=== PATIENT | female | born 1990 | race African-American/Black ===

== ENCOUNTER 2020-02-29 04:03 | Inpatient (IN) | payer MEDICAID ==
[~2020-02-29] VITALS: Ht 162.6 cm; Wt 109.4 kg
[~2020-02-29 04:03] MED LIST: ADV250 IH; ALBU8HFA4 IH; DIVA-80 PO; HALOD100I IM; OLAN10TA6 PO; ZIPR20CA2 PO
[2020-02-29 10:00] VITALS: BP 127/81
[2020-02-29 10:35] VITALS: BP 148/101
[2020-02-29 11:03] VITALS: BP 157/107
[2020-02-29] MEDS: AmLODIPine BESYLATE 5 MG TABLET PO SCH (12:14)
[2020-02-29] MEDS ORDERED: HALOPERIDOL LACTATE 5 MG/ML VIAL ONE (14:58)
[2020-02-29] MEDS ORDERED: LORazepam 2 MG/ML VIAL ONE (14:58)
[2020-02-29] MEDS ORDERED: DiphenhydrAMINE HCL 50 MG/ML VIAL ONE (14:59)
[2020-02-29] MEDS ORDERED: HALOPERIDOL LACTATE 5 MG/ML VIAL IM ONE (15:15)
[2020-02-29] MEDS ORDERED: LORazepam 2 MG/ML VIAL IM ONE (15:15)
[2020-02-29] MEDS ORDERED: DiphenhydrAMINE HCL 50 MG/ML VIAL IM ONE (15:15)
[2020-02-29] MEDS: NICOTINE POLACRILEX 2 MG LOZENGE PO PRN (15:55)
[2020-02-29 16:05] VITALS: BP 140/90
[2020-02-29 16:10] VITALS: BP 140/90
[2020-02-29] MEDS: DIVALPROEX SODIUM 500 MG ER TABLET PO SCH (20:24)
[2020-02-29] MEDS: OLANZapine 10 MG RAPDIS TABLET PO SCH (20:24)
[2020-03-01] MEDS: NICOTINE POLACRILEX 2 MG LOZENGE PO PRN ×3 (02:49→20:11)
[2020-03-01 04:06] VITALS: BP 121/80
[2020-03-01] MEDS: ACETAMINOPHEN 325 MG TABLET PO PRN ×2 (05:47→20:05)
[2020-03-01] MEDS: AmLODIPine BESYLATE 5 MG TABLET PO SCH (08:08)
[2020-03-01] MEDS: OLANZapine 10 MG RAPDIS TABLET PO SCH ×2 (08:08→20:02)
[2020-03-01 08:20] VITALS: BP 142/93
[2020-03-01 08:25] VITALS: BP 142/93
[2020-03-01 08:25] LABS: BASOPHILS % (AUTO) 0.4 % (0.0-2.0); EOSINOPHILS % (AUTO) 2.5 % (1.0-6.0); HEMATOCRIT 33.4 % (36-46); HEMOGLOBIN 11.8 g/dL (12.0-16.0); LYMPHOCYTES # (AUTO) 4.3 K/uL (1.0-4.8); LYMPHOCYTES % (AUTO) 56.1 % (22.0-44.0); MEAN CORPUSCULAR HEMOGLOBIN 29.1 pg (26.0-34.0); MEAN CORPUSCULAR HGB CONC 35.3 G/dL (31.0-37.0); MEAN CORPUSCULAR VOLUME 82 fL (80-100); MONOCYTES # (AUTO) 0.9 K/uL (0.1-1.0); MONOCYTES % (AUTO) 11.5 % (2.0-9.0); NEUTROPHILS # (AUTO) 2.3 K/uL (1.8-7.7); NEUTROPHILS % (AUTO) 29.5 % (40.0-70.0); PLATELET COUNT (AUTO) 428 K/uL (150-450); RED BLOOD CELL COUNT(AUTO) 4.05 MIL/uL (4.00-5.20); RED CELL DISTRIBUTION WIDTH 15.6 % (11.5-14.5)
[2020-03-01 08:48] LABS: ALANINE AMINOTRANSFERASE 30 U/L (12-78); ALBUMIN 3.5 g/dL (3.4-5.0); ALKALINE PHOSPHATASE 86 U/L (46-116); ANION GAP 11 mmol/L (8-16); ASPARTATE AMINOTRANSFERASE 23 U/L (15-37); BILIRUBIN,TOTAL 0.1 mg/dL (0.1-1.0); CALCIUM, TOTAL 9.1 mg/dL (8.8-10.5); CARBON DIOXIDE 31 mmol/L (22-29); CHLORIDE 104 mmol/L (98-107); CHOL/HDL RATIO 4.9 (3.9-5.7); CHOLESTEROL 182 mg/dL (131-200); CREATININE 0.71 mg/dL (0.60-1.30); FREE T4 (FREE THYROXINE) 1.08 ng/dL (0.76-1.46); GLOMERULAR FILTR. RATE CALC > 60 mL/min (>60); GLUCOSE,RANDOM 103 mg/dL (70-110); HCG,QUANTITATIVE < 1 mIU/mL (0-6); HDL CHOLESTEROL 37 mg/dL (40-60); LDL CHOL (CALC.) 87 mg/dL (0-130); POTASSIUM 3.6 mmol/L (3.5-5.1); SODIUM SERUM 146 mmol/L (136-145); TOTAL PROTEIN, SERUM 7.5 g/dL (6.4-8.2); TRIGLYCERIDES 290 mg/dL (15-150); UREA NITROGEN, BLOOD 11 mg/dL (7-18)
[2020-03-01 09:18] LABS: HEMOGLOBIN A1C 5.4 % (3.8-5.6)
[2020-03-01 09:44] LABS: APPEARANCE,URINE CLOUDY (CLEAR); BILIRUBIN,URINE NEGATIVE (NEGATIVE); GLUCOSE, URINE (UA) NEGATIVE (NEGATIVE); KETONES,URINE NEGATIVE (NEGATIVE); LEUKOCYTE ESTERASE ,URINE NEGATIVE (NEGATIVE); NITRATE,URINE NEGATIVE (NEGATIVE); OCCULT BLOOD,URINE NEGATIVE (NEGATIVE); PROTEIN,URINE NEGATIVE (NEGATIVE); UROBILINOGEN,URINE 0.2 mg/dL (<=1.0)
[2020-03-01 09:48] LABS: AMPHET/METH SCREEN,URINE NEGATIVE (NEGATIVE); BARBITURATE SCREEN, URINE NEGATIVE (NEGATIVE); BENZODIAZEPINES SCREEN,URINE NEGATIVE (NEGATIVE); CANNABINOID SCREEN,URINE NEGATIVE (NEGATIVE); COCAINE SCREEN,URINE NEGATIVE (NEGATIVE); METHADONE SCREEN, URINE NEGATIVE (NEGATIVE); OPIATE SCREEN,URINE NEGATIVE (NEGATIVE)
[2020-03-01 09:51] LABS: PHENCYCLIDINE SCREEN,URINE NEGATIVE (NEGATIVE)
[2020-03-01] MEDS: LORazepam 2 MG TABLET PO PRN ×2 (10:24→14:44)
[2020-03-01] MEDS: HALOPERIDOL 5 MG TABLET PO PRN ×2 (10:25→16:09)
[2020-03-01 16:45] VITALS: BP 123/81
[2020-03-01] MEDS: DIVALPROEX SODIUM 500 MG ER TABLET PO SCH (20:02)
[2020-03-01 20:05] VITALS: BP 132/78
[2020-03-01] MEDS: ZOLPIDEM TARTRATE 10 MG TABLET PO PRN (20:12)
[2020-03-02 02:49] VITALS: BP 127/92
[2020-03-02] MEDS: OLANZapine 10 MG RAPDIS TABLET PO SCH ×2 (09:22→20:41)
[2020-03-02] MEDS: AmLODIPine BESYLATE 5 MG TABLET PO SCH (09:22)
[2020-03-02] MEDS: LORazepam 2 MG TABLET PO PRN ×2 (09:26→15:57)
[2020-03-02] MEDS: NICOTINE POLACRILEX 2 MG LOZENGE PO PRN ×2 (10:07→20:55)
[2020-03-02] MEDS: HALOPERIDOL 5 MG TABLET PO PRN ×2 (10:43→15:57)
[2020-03-02 13:14] VITALS: BP 136/101
[2020-03-02] MEDS ORDERED: HALO100V4 IM (13:33)
[2020-03-02] MEDS ORDERED: ALBU8HFA IH (13:33)
[2020-03-02] MEDS: BENZOCAINE/MENTHOL LOZENGE PO PRN ×2 (13:46→20:59)
[2020-03-02 16:20] VITALS: BP 130/90
[2020-03-02] MEDS: DIVALPROEX SODIUM 500 MG ER TABLET PO SCH (20:41)
[2020-03-02] MEDS: ZOLPIDEM TARTRATE 10 MG TABLET PO PRN (20:59)
[2020-03-02 21:19] VITALS: BP 134/86
[2020-03-02] MEDS: ACETAMINOPHEN 325 MG TABLET PO PRN (21:19)
[2020-03-03 03:11] VITALS: BP 114/91
[2020-03-03] MEDS: HALOPERIDOL 5 MG TABLET PO PRN ×3 (03:14→20:15)
[2020-03-03] MEDS: LORazepam 2 MG TABLET PO PRN ×2 (03:14→21:32)
[2020-03-03] MEDS: BENZOCAINE/MENTHOL LOZENGE PO PRN ×3 (03:16→19:14)
[2020-03-03] MEDS: NICOTINE POLACRILEX 2 MG LOZENGE PO PRN ×2 (05:19→17:05)
[2020-03-03] MEDS: OLANZapine 10 MG RAPDIS TABLET PO SCH ×2 (08:37→20:15)
[2020-03-03] MEDS: AmLODIPine BESYLATE 5 MG TABLET PO SCH (08:37)
[2020-03-03 09:35] VITALS: BP 138/95
[2020-03-03] MEDS ORDERED: LORazepam 2 MG/ML VIAL ONE (13:21)
[2020-03-03] MEDS ORDERED: DiphenhydrAMINE HCL 50 MG/ML VIAL ONE (13:22)
[2020-03-03] MEDS ORDERED: ChlorproMAZINE HCL 25 MG/ML 2 ML AMP ONE (13:22)
[2020-03-03] MEDS ORDERED: LORazepam 2 MG/ML VIAL IM ONE (13:30)
[2020-03-03] MEDS ORDERED: ChlorproMAZINE HCL 25 MG/ML 2 ML AMP IM ONE (13:30)
[2020-03-03] MEDS ORDERED: DiphenhydrAMINE HCL 50 MG/ML VIAL IM ONE (13:30)
[2020-03-03 16:02] VITALS: BP 125/98
[2020-03-03] MEDS: DIVALPROEX SODIUM 500 MG ER TABLET PO SCH (20:14)
[2020-03-03] MEDS: ZOLPIDEM TARTRATE 10 MG TABLET PO PRN (22:51)
[2020-03-04 05:09] VITALS: BP 108/74
[2020-03-04] MEDS: BENZOCAINE/MENTHOL LOZENGE PO PRN ×3 (05:40→20:00)
[2020-03-04] MEDS ORDERED: IBUPROFEN 400 MG TABLET PO PRN (07:00)
[2020-03-04] MEDS ORDERED: NICOTINE 14 MG/24 HOUR PATCH TD PRN (07:00)
[2020-03-04] MEDS ORDERED: DOCUSATE SODIUM 100 MG CAPSULE PO PRN (07:00)
[2020-03-04] MEDS ORDERED: LOPERAMIDE HCL 2 MG CAPSULE PO PRN (07:00)
[2020-03-04] MEDS ORDERED: ONDANSETRON HCL 4 MG TABLET PO PRN (07:00)
[2020-03-04] MEDS ORDERED: CloNIDine HCL 0.1 MG TABLET PO PRN (07:00)
[2020-03-04] MEDS ORDERED: MAGNESIUM HYDROXIDE SUSPENSION 30 ML UDCUP PO PRN (07:00)
[2020-03-04] MEDS ORDERED: MAG HYDROX/AL HYDROX/SIMETH ES 30 ML SUSPENSION UDCUP PO PRN (07:00)
[2020-03-04] MEDS: LORazepam 2 MG TABLET PO PRN ×2 (08:03→15:50)
[2020-03-04] MEDS: OLANZapine 10 MG RAPDIS TABLET PO SCH ×2 (08:03→20:43)
[2020-03-04] MEDS: AmLODIPine BESYLATE 5 MG TABLET PO SCH (08:03)
[2020-03-04] MEDS: NICOTINE POLACRILEX 2 MG LOZENGE PO PRN ×2 (08:50→11:09)
[2020-03-04] MEDS: ACETAMINOPHEN 325 MG TABLET PO PRN (09:41)
[2020-03-04 10:23] VITALS: BP 136/89
[2020-03-04] MEDS: HALOPERIDOL 5 MG TABLET PO PRN (15:50)
[2020-03-04] MEDS: GuaiFENesin/D-METHORPHAN [SUGAR-FREE] 200-20MG/10 ML SYRUP UDCUP PO PRN (17:04)
[2020-03-04] MEDS: DIVALPROEX SODIUM 500 MG ER TABLET PO SCH (20:43)
[2020-03-04] MEDS: ZOLPIDEM TARTRATE 10 MG TABLET PO PRN (20:43)
[2020-03-05 04:19] VITALS: BP 127/83
[2020-03-05] MEDS: ACETAMINOPHEN 325 MG TABLET PO PRN ×3 (04:22→20:32)
[2020-03-05] MEDS ORDERED: ChlorproMAZINE HCL 25 MG/ML 2 ML AMP IM ONE (07:00)
[2020-03-05] MEDS ORDERED: LORazepam 2 MG/ML VIAL IM ONE (07:00)
[2020-03-05] MEDS ORDERED: DiphenhydrAMINE HCL 50 MG/ML VIAL IM ONE (07:00)
[2020-03-05] MEDS: NICOTINE POLACRILEX 2 MG LOZENGE PO PRN ×2 (08:33→16:43)
[2020-03-05] MEDS: OLANZapine 10 MG RAPDIS TABLET PO SCH ×2 (08:33→20:32)
[2020-03-05] MEDS: AmLODIPine BESYLATE 5 MG TABLET PO SCH (08:34)
[2020-03-05] MEDS: BENZOCAINE/MENTHOL LOZENGE PO PRN ×2 (09:45→15:53)
[2020-03-05] MEDS: LORazepam 2 MG TABLET PO PRN (16:14)
[2020-03-05] MEDS: HALOPERIDOL 5 MG TABLET PO PRN (16:14)
[2020-03-05 16:37] VITALS: BP 165/100
[2020-03-05] MEDS: ALBUTEROL SULFATE HFA 90 MCG/PUFF 8 GM INHALER IH PRN (17:40)
[2020-03-05] MEDS: DIVALPROEX SODIUM 500 MG ER TABLET PO SCH (20:31)
[2020-03-05] MEDS: ZOLPIDEM TARTRATE 10 MG TABLET PO PRN (20:33)
[2020-03-06 02:00] VITALS: BP 128/86
[2020-03-06] MEDS: BENZOCAINE/MENTHOL LOZENGE PO PRN ×2 (04:21→13:57)
[2020-03-06] MEDS: OLANZapine 10 MG RAPDIS TABLET PO SCH ×2 (08:11→20:21)
[2020-03-06] MEDS: AmLODIPine BESYLATE 5 MG TABLET PO SCH (08:11)
[2020-03-06] MEDS: LORazepam 2 MG TABLET PO PRN (08:19)
[2020-03-06] MEDS: NICOTINE POLACRILEX 2 MG LOZENGE PO PRN ×2 (08:19→16:25)
[2020-03-06] MEDS: ALBUTEROL SULFATE HFA 90 MCG/PUFF 8 GM INHALER IH PRN (16:25)
[2020-03-06] MEDS: HALOPERIDOL 5 MG TABLET PO PRN (18:25)
[2020-03-06] MEDS: ACETAMINOPHEN 325 MG TABLET PO PRN (19:35)
[2020-03-06] MEDS: DIVALPROEX SODIUM 500 MG ER TABLET PO SCH (20:21)
[2020-03-06] MEDS: ZOLPIDEM TARTRATE 10 MG TABLET PO PRN (20:21)
[2020-03-07] MEDS: BENZOCAINE/MENTHOL LOZENGE PO PRN ×3 (02:51→20:36)
[2020-03-07] MEDS: ACETAMINOPHEN 325 MG TABLET PO PRN (04:34)
[2020-03-07] MEDS: NICOTINE POLACRILEX 2 MG LOZENGE PO PRN ×2 (04:37→17:50)
[2020-03-07 06:27] VITALS: BP 132/88
[2020-03-07 08:00] VITALS: BP 118/80
[2020-03-07] MEDS: OLANZapine 10 MG RAPDIS TABLET PO SCH (08:05)
[2020-03-07] MEDS: AmLODIPine BESYLATE 5 MG TABLET PO SCH (08:05)
[2020-03-07] MEDS: LORazepam 2 MG TABLET PO PRN ×2 (08:05→18:11)
[2020-03-07] MEDS: ALBUTEROL SULFATE HFA 90 MCG/PUFF 8 GM INHALER IH PRN ×2 (09:37→17:52)
[2020-03-07] MEDS: HALOPERIDOL 5 MG TABLET PO PRN ×2 (09:37→18:12)
[2020-03-07 19:35] VITALS: BP 138/90
[2020-03-07] MEDS: DIVALPROEX SODIUM 500 MG ER TABLET PO SCH (20:13)
[2020-03-07] MEDS: OLANZapine 7.5 MG TABLET PO SCH (20:13)
[2020-03-08] MEDS: ACETAMINOPHEN 325 MG TABLET PO PRN ×2 (02:45→18:52)
[2020-03-08 04:38] VITALS: BP 122/87
[2020-03-08] MEDS: OMEGA-3/DHA/EPA/FISH OIL 1,000 MG CAPSULE PO SCH (08:21)
[2020-03-08] MEDS: MULTIVITAMINS WITH IRON TABLET PO SCH (08:21)
[2020-03-08] MEDS: LORazepam 2 MG TABLET PO PRN ×2 (08:21→16:53)
[2020-03-08] MEDS: OLANZapine 7.5 MG TABLET PO SCH ×2 (08:21→20:40)
[2020-03-08] MEDS: AmLODIPine BESYLATE 5 MG TABLET PO SCH (08:21)
[2020-03-08 08:22] VITALS: BP 112/69
[2020-03-08] MEDS: NICOTINE POLACRILEX 2 MG LOZENGE PO PRN ×2 (08:57→19:39)
[2020-03-08] MEDS: BENZOCAINE/MENTHOL LOZENGE PO PRN ×2 (12:19→18:31)
[2020-03-08] MEDS: ALBUTEROL SULFATE HFA 90 MCG/PUFF 8 GM INHALER IH PRN (13:36)
[2020-03-08] MEDS: HALOPERIDOL 5 MG TABLET PO PRN (14:08)
[2020-03-08 17:22] VITALS: BP 138/83
[2020-03-08] MEDS: DIVALPROEX SODIUM 500 MG ER TABLET PO SCH (20:40)
[2020-03-08] MEDS: GuaiFENesin/D-METHORPHAN [SUGAR-FREE] 200-20MG/10 ML SYRUP UDCUP PO PRN (20:51)
[2020-03-09 04:13] VITALS: BP 140/75
[2020-03-09] MEDS: ACETAMINOPHEN 325 MG TABLET PO PRN ×2 (04:13→18:08)
[2020-03-09] MEDS: MULTIVITAMINS WITH IRON TABLET PO SCH (08:08)
[2020-03-09] MEDS: OMEGA-3/DHA/EPA/FISH OIL 1,000 MG CAPSULE PO SCH (08:08)
[2020-03-09] MEDS: AmLODIPine BESYLATE 5 MG TABLET PO SCH (08:08)
[2020-03-09] MEDS: OLANZapine 7.5 MG TABLET PO SCH ×2 (08:08→21:00)
[2020-03-09] MEDS: LORazepam 2 MG TABLET PO PRN ×2 (08:08→14:38)
[2020-03-09] MEDS: BENZOCAINE/MENTHOL LOZENGE PO PRN ×2 (08:49→15:54)
[2020-03-09] MEDS: NICOTINE POLACRILEX 2 MG LOZENGE PO PRN (11:02)
[2020-03-09] MEDS: HALOPERIDOL 5 MG TABLET PO PRN (14:38)
[2020-03-09] MEDS: ZOLPIDEM TARTRATE 10 MG TABLET PO PRN (21:00)
[2020-03-09] MEDS: DIVALPROEX SODIUM 500 MG ER TABLET PO SCH (21:00)
[2020-03-10] MEDS: NICOTINE POLACRILEX 2 MG LOZENGE PO PRN ×3 (06:05→17:12)
[2020-03-10] MEDS: BENZOCAINE/MENTHOL LOZENGE PO PRN ×3 (06:09→19:11)
[2020-03-10 06:11] VITALS: BP 130/57
[2020-03-10] MEDS: ACETAMINOPHEN 325 MG TABLET PO PRN (06:18)
[2020-03-10] MEDS: ALBUTEROL SULFATE HFA 90 MCG/PUFF 8 GM INHALER IH PRN ×2 (08:13→17:14)
[2020-03-10 08:15] VITALS: BP 120/72
[2020-03-10] MEDS: LORazepam 2 MG TABLET PO PRN ×3 (08:18→21:33)
[2020-03-10] MEDS: MULTIVITAMINS WITH IRON TABLET PO SCH (08:18)
[2020-03-10] MEDS: OLANZapine 7.5 MG TABLET PO SCH ×2 (08:18→20:39)
[2020-03-10] MEDS: OMEGA-3/DHA/EPA/FISH OIL 1,000 MG CAPSULE PO SCH (08:18)
[2020-03-10] MEDS: AmLODIPine BESYLATE 5 MG TABLET PO SCH (08:18)
[2020-03-10 17:14] VITALS: BP 143/93
[2020-03-10] MEDS: DIVALPROEX SODIUM 500 MG ER TABLET PO SCH (20:39)
[2020-03-10] MEDS: ZOLPIDEM TARTRATE 10 MG TABLET PO PRN (20:39)
[2020-03-10] MEDS: PETROLATUM,WHITE 28 GM JELLY TP PRN (20:41)
[2020-03-10] MEDS: HALOPERIDOL 5 MG TABLET PO PRN (21:39)
[2020-03-11] MEDS: BENZOCAINE/MENTHOL LOZENGE PO PRN ×3 (01:17→16:14)
[2020-03-11 01:18] VITALS: BP 123/91
[2020-03-11] MEDS: NICOTINE POLACRILEX 2 MG LOZENGE PO PRN ×3 (01:40→20:40)
[2020-03-11] MEDS: GuaiFENesin/D-METHORPHAN [SUGAR-FREE] 200-20MG/10 ML SYRUP UDCUP PO PRN ×2 (06:14→16:38)
[2020-03-11] MEDS: OLANZapine 7.5 MG TABLET PO SCH ×2 (08:00→20:40)
[2020-03-11] MEDS: OMEGA-3/DHA/EPA/FISH OIL 1,000 MG CAPSULE PO SCH (08:00)
[2020-03-11] MEDS: MULTIVITAMINS WITH IRON TABLET PO SCH (08:00)
[2020-03-11] MEDS: AmLODIPine BESYLATE 5 MG TABLET PO SCH (08:00)
[2020-03-11] MEDS: LORazepam 2 MG TABLET PO PRN ×2 (08:00→16:37)
[2020-03-11] MEDS: ALBUTEROL SULFATE HFA 90 MCG/PUFF 8 GM INHALER IH PRN ×2 (08:38→18:53)
[2020-03-11] MEDS: HALOPERIDOL 5 MG TABLET PO PRN (09:48)
[2020-03-11 16:15] VITALS: BP 136/89
[2020-03-11] MEDS: ACETAMINOPHEN 325 MG TABLET PO PRN (16:38)
[2020-03-11] MEDS: PETROLATUM,WHITE 28 GM JELLY TP PRN (18:53)
[2020-03-11] MEDS: ZOLPIDEM TARTRATE 10 MG TABLET PO PRN (20:40)
[2020-03-11] MEDS: DIVALPROEX SODIUM 500 MG ER TABLET PO SCH (20:40)
[2020-03-12] MEDS: BENZOCAINE/MENTHOL LOZENGE PO PRN ×2 (01:17→08:10)
[2020-03-12 01:57] VITALS: BP 122/86
[2020-03-12] MEDS: ACETAMINOPHEN 325 MG TABLET PO PRN (02:24)
[2020-03-12] MEDS: NICOTINE POLACRILEX 2 MG LOZENGE PO PRN (07:02)
[2020-03-12 07:54] LABS: ANION GAP 7 mmol/L (8-16); CALCIUM, TOTAL 9.2 mg/dL (8.8-10.5); CARBON DIOXIDE 30 mmol/L (22-29); CHLORIDE 106 mmol/L (98-107); CREATININE 0.63 mg/dL (0.60-1.30); GLOMERULAR FILTR. RATE CALC > 60 mL/min (>60); GLUCOSE,RANDOM 82 mg/dL (70-110); POTASSIUM 4.2 mmol/L (3.5-5.1); SODIUM SERUM 143 mmol/L (136-145); UREA NITROGEN, BLOOD 8 mg/dL (7-18)
[2020-03-12] MEDS: MULTIVITAMINS WITH IRON TABLET PO SCH (08:08)
[2020-03-12] MEDS: OMEGA-3/DHA/EPA/FISH OIL 1,000 MG CAPSULE PO SCH (08:08)
[2020-03-12] MEDS: OLANZapine 7.5 MG TABLET PO SCH (08:09)
[2020-03-12] MEDS: AmLODIPine BESYLATE 5 MG TABLET PO SCH (08:09)
[2020-03-12] MEDS: LORazepam 2 MG TABLET PO PRN (08:35)
[2020-03-12] MEDS ORDERED: OLAN7.5T9 PO (09:31)
[2020-03-12] MEDS ORDERED: DIVA-80 PO (09:31)
[2020-03-12] MEDS ORDERED: MVITFE PO ×2 (11:13→11:14)
[2020-03-12] MEDS ORDERED: AMLO-257 PO (11:13)
[2020-03-12] MEDS ORDERED: OMEG-135 PO (11:13)
== END 2020-03-12 13:25 | disposition home or self-care (01) | DRG 885 ==
LOC: B3A 11:07
DX: F25.0 Schizoaffective disorder, bipolar type (principal); R45.851 Suicidal ideations; E87.0 Hyperosmolality and hypernatremia; Z91.14 Patient's other noncompliance with medication regimen; J44.9 Chronic obstructive pulmonary disease, unspecified; D64.9 Anemia, unspecified; F19.90 Other psychoactive substance use, unspecified, uncomplicated; E78.5 Hyperlipidemia, unspecified; Z59.0 Homelessness; F10.10 Alcohol abuse, uncomplicated; Y90.9 Presence of alcohol in blood, level not specified; F17.200 Nicotine dependence, unspecified, uncomplicated; I95.9 Hypotension, unspecified; Z79.899 Other long term (current) drug therapy
CPT/HCPCS: 80307; 83036; 84439; 84443; 86592; 87081; J1200; J1630; J2060; J3230; J3535

== ENCOUNTER 2020-03-20 07:30 | Inpatient (IN) | payer MEDICAID ==
[~2020-03-20] VITALS: Ht 154.9 cm; Wt 109.3 kg
[~2020-03-20 07:30] MED LIST changes: -ADV250 IH; -ALBU8HFA4 IH; +AMLO-257 PO; -HALOD100I IM; +MVITFE PO; -OLAN10TA6 PO; +OLAN7.5T9 PO; +OMEG-135 PO; -ZIPR20CA2 PO
[2020-03-20 09:28] VITALS: BP 127/90
[2020-03-20] MEDS: LORazepam 2 MG TABLET PO PRN ×2 (10:51→16:56)
[2020-03-20 11:14] VITALS: BP 143/96
[2020-03-20] MEDS ORDERED: ONDANSETRON HCL 4 MG TABLET PO PRN (15:00)
[2020-03-20] MEDS ORDERED: MAG HYDROX/AL HYDROX/SIMETH ES 30 ML SUSPENSION UDCUP PO PRN (15:00)
[2020-03-20] MEDS ORDERED: CloNIDine HCL 0.1 MG TABLET PO PRN (15:00)
[2020-03-20] MEDS ORDERED: MAGNESIUM HYDROXIDE SUSPENSION 30 ML UDCUP PO PRN (15:00)
[2020-03-20] MEDS ORDERED: PETROLATUM,WHITE 28 GM JELLY TP PRN (15:00)
[2020-03-20] MEDS ORDERED: NICOTINE 14 MG/24 HOUR PATCH TD PRN (15:00)
[2020-03-20] MEDS ORDERED: LOPERAMIDE HCL 2 MG CAPSULE PO PRN (15:00)
[2020-03-20] MEDS ORDERED: DOCUSATE SODIUM 100 MG CAPSULE PO PRN (15:00)
[2020-03-20 17:23] VITALS: BP 139/68
[2020-03-20] MEDS: ALBUTEROL SULFATE HFA 90 MCG/PUFF 8 GM INHALER IH PRN (17:56)
[2020-03-20] MEDS: OLANZapine 7.5 MG TABLET PO SCH (20:25)
[2020-03-20] MEDS: DIVALPROEX SODIUM 500 MG DR TABLET PO SCH (20:25)
[2020-03-20] MEDS: ZOLPIDEM TARTRATE 10 MG TABLET PO PRN (20:30)
[2020-03-21 04:11] VITALS: BP 128/74
[2020-03-21] MEDS: LORazepam 2 MG TABLET PO PRN ×2 (06:44→12:02)
[2020-03-21] MEDS: OMEGA-3/DHA/EPA/FISH OIL 1,000 MG CAPSULE PO SCH (08:19)
[2020-03-21] MEDS: MULTIVITAMINS WITH IRON TABLET PO SCH (08:20)
[2020-03-21] MEDS: NICOTINE 7 MG/24 HOUR PATCH TD SCH (08:20)
[2020-03-21] MEDS: OLANZapine 7.5 MG TABLET PO SCH ×2 (08:20→21:03)
[2020-03-21] MEDS: AmLODIPine BESYLATE 5 MG TABLET PO SCH (08:22)
[2020-03-21 08:29] VITALS: BP 112/74
[2020-03-21] MEDS: HALOPERIDOL 5 MG TABLET PO PRN ×2 (10:13→18:53)
[2020-03-21 16:38] VITALS: BP 124/72
[2020-03-21] MEDS: ACETAMINOPHEN 325 MG TABLET PO PRN (18:39)
[2020-03-21] MEDS: ALBUTEROL SULFATE HFA 90 MCG/PUFF 8 GM INHALER IH PRN (18:53)
[2020-03-21] MEDS: ZOLPIDEM TARTRATE 10 MG TABLET PO PRN (21:03)
[2020-03-21] MEDS: DIVALPROEX SODIUM 500 MG DR TABLET PO SCH (21:03)
[2020-03-22 01:24] VITALS: BP 122/74
[2020-03-22] MEDS: ACETAMINOPHEN 325 MG TABLET PO PRN (06:40)
[2020-03-22 08:19] LABS: AMPHET/METH SCREEN,URINE NEGATIVE (NEGATIVE); BARBITURATE SCREEN, URINE NEGATIVE (NEGATIVE); BENZODIAZEPINES SCREEN,URINE NEGATIVE (NEGATIVE); CANNABINOID SCREEN,URINE NEGATIVE (NEGATIVE); COCAINE SCREEN,URINE NEGATIVE (NEGATIVE); METHADONE SCREEN, URINE NEGATIVE (NEGATIVE); OPIATE SCREEN,URINE NEGATIVE (NEGATIVE)
[2020-03-22 08:25] LABS: PHENCYCLIDINE SCREEN,URINE NEGATIVE (NEGATIVE)
[2020-03-22 08:33] VITALS: BP 116/74
[2020-03-22] MEDS: MULTIVITAMINS WITH IRON TABLET PO SCH (08:35)
[2020-03-22] MEDS: NICOTINE 7 MG/24 HOUR PATCH TD SCH (08:35)
[2020-03-22] MEDS: LORazepam 2 MG TABLET PO PRN ×2 (08:36→16:16)
[2020-03-22] MEDS: OLANZapine 7.5 MG TABLET PO SCH ×2 (08:36→20:54)
[2020-03-22] MEDS: AmLODIPine BESYLATE 5 MG TABLET PO SCH (08:36)
[2020-03-22] MEDS: OMEGA-3/DHA/EPA/FISH OIL 1,000 MG CAPSULE PO SCH (08:36)
[2020-03-22] MEDS: HALOPERIDOL 5 MG TABLET PO PRN (09:39)
[2020-03-22 16:33] VITALS: BP 125/89
[2020-03-22] MEDS: DIVALPROEX SODIUM 500 MG DR TABLET PO SCH (20:55)
[2020-03-22] MEDS: ZOLPIDEM TARTRATE 10 MG TABLET PO PRN (21:57)
[2020-03-23 06:31] VITALS: BP 130/85
[2020-03-23] MEDS: OMEGA-3/DHA/EPA/FISH OIL 1,000 MG CAPSULE PO SCH (08:10)
[2020-03-23] MEDS: NICOTINE 7 MG/24 HOUR PATCH TD SCH (08:10)
[2020-03-23] MEDS: AmLODIPine BESYLATE 5 MG TABLET PO SCH (08:10)
[2020-03-23] MEDS: LORazepam 2 MG TABLET PO PRN ×2 (08:11→16:50)
[2020-03-23] MEDS: OLANZapine 7.5 MG TABLET PO SCH ×2 (08:11→20:14)
[2020-03-23] MEDS: MULTIVITAMINS WITH IRON TABLET PO SCH (08:11)
[2020-03-23] MEDS: HALOPERIDOL 5 MG TABLET PO PRN ×2 (09:18→16:50)
[2020-03-23] MEDS: ACETAMINOPHEN 325 MG TABLET PO PRN (09:37)
[2020-03-23 09:38] VITALS: BP 125/96
[2020-03-23 16:45] VITALS: BP 139/82
[2020-03-23] MEDS: ALBUTEROL SULFATE HFA 90 MCG/PUFF 8 GM INHALER IH PRN (16:57)
[2020-03-23] MEDS: DIVALPROEX SODIUM 500 MG DR TABLET PO SCH (20:14)
[2020-03-23] MEDS: ZOLPIDEM TARTRATE 10 MG TABLET PO PRN (20:58)
[2020-03-24 00:51] VITALS: BP 133/84
[2020-03-24] MEDS: ACETAMINOPHEN 325 MG TABLET PO PRN ×2 (06:33→15:53)
[2020-03-24 08:00] VITALS: BP 124/74
[2020-03-24] MEDS: MULTIVITAMINS WITH IRON TABLET PO SCH (08:05)
[2020-03-24] MEDS: OMEGA-3/DHA/EPA/FISH OIL 1,000 MG CAPSULE PO SCH (08:05)
[2020-03-24] MEDS: OLANZapine 7.5 MG TABLET PO SCH ×2 (08:05→20:32)
[2020-03-24] MEDS: AmLODIPine BESYLATE 5 MG TABLET PO SCH (08:06)
[2020-03-24] MEDS: LORazepam 2 MG TABLET PO PRN ×3 (08:06→21:10)
[2020-03-24] MEDS: NICOTINE 7 MG/24 HOUR PATCH TD SCH (08:08)
[2020-03-24] MEDS: HALOPERIDOL 5 MG TABLET PO PRN ×3 (13:05→20:32)
[2020-03-24 16:36] VITALS: BP 147/82
[2020-03-24] MEDS: DIVALPROEX SODIUM 500 MG DR TABLET PO SCH (20:31)
[2020-03-24 20:56] VITALS: BP 134/90
[2020-03-24] MEDS: IBUPROFEN 400 MG TABLET PO PRN (21:10)
[2020-03-24] MEDS: ZOLPIDEM TARTRATE 10 MG TABLET PO PRN (21:25)
[2020-03-25 03:24] VITALS: BP 128/86
[2020-03-25] MEDS: AmLODIPine BESYLATE 5 MG TABLET PO SCH (07:59)
[2020-03-25] MEDS: NICOTINE 7 MG/24 HOUR PATCH TD SCH (07:59)
[2020-03-25] MEDS: MULTIVITAMINS WITH IRON TABLET PO SCH (07:59)
[2020-03-25] MEDS: OLANZapine 7.5 MG TABLET PO SCH ×2 (07:59→20:37)
[2020-03-25] MEDS: OMEGA-3/DHA/EPA/FISH OIL 1,000 MG CAPSULE PO SCH (07:59)
[2020-03-25 08:00] VITALS: BP 118/74
[2020-03-25] MEDS: LORazepam 2 MG TABLET PO PRN ×2 (08:10→16:32)
[2020-03-25] MEDS: HALOPERIDOL 5 MG TABLET PO PRN ×2 (10:00→16:32)
[2020-03-25] MEDS: ALBUTEROL SULFATE HFA 90 MCG/PUFF 8 GM INHALER IH PRN ×2 (10:21→18:29)
[2020-03-25 16:22] VITALS: BP 130/79
[2020-03-25] MEDS: DIVALPROEX SODIUM 500 MG DR TABLET PO SCH (20:37)
[2020-03-25] MEDS: ZOLPIDEM TARTRATE 10 MG TABLET PO PRN (20:37)
[2020-03-26 00:47] VITALS: BP 120/74
[2020-03-26] MEDS: GuaiFENesin/D-METHORPHAN [SUGAR-FREE] 200-20MG/10 ML SYRUP UDCUP PO PRN (05:45)
[2020-03-26] MEDS: NICOTINE 7 MG/24 HOUR PATCH TD SCH (07:56)
[2020-03-26] MEDS: AmLODIPine BESYLATE 5 MG TABLET PO SCH (07:56)
[2020-03-26] MEDS: OMEGA-3/DHA/EPA/FISH OIL 1,000 MG CAPSULE PO SCH (07:56)
[2020-03-26] MEDS: MULTIVITAMINS WITH IRON TABLET PO SCH (07:56)
[2020-03-26] MEDS: OLANZapine 7.5 MG TABLET PO SCH ×2 (07:57→21:01)
[2020-03-26 08:00] VITALS: BP 118/80
[2020-03-26] MEDS: LORazepam 2 MG TABLET PO PRN ×2 (09:45→16:41)
[2020-03-26] MEDS: HALOPERIDOL 5 MG TABLET PO PRN (10:44)
[2020-03-26] MEDS: IBUPROFEN 400 MG TABLET PO PRN (16:41)
[2020-03-26 16:43] VITALS: BP 139/84
[2020-03-26] MEDS: DIVALPROEX SODIUM 500 MG DR TABLET PO SCH (21:01)
[2020-03-27 00:45] VITALS: BP 122/76
[2020-03-27 08:10] VITALS: BP 121/72
[2020-03-27] MEDS: OMEGA-3/DHA/EPA/FISH OIL 1,000 MG CAPSULE PO SCH (08:11)
[2020-03-27] MEDS: OLANZapine 7.5 MG TABLET PO SCH ×2 (08:12→20:26)
[2020-03-27] MEDS: LORazepam 2 MG TABLET PO PRN ×2 (08:12→16:24)
[2020-03-27] MEDS: MULTIVITAMINS WITH IRON TABLET PO SCH (08:12)
[2020-03-27] MEDS: AmLODIPine BESYLATE 5 MG TABLET PO SCH (08:12)
[2020-03-27] MEDS: NICOTINE 7 MG/24 HOUR PATCH TD SCH (08:13)
[2020-03-27] MEDS: HALOPERIDOL 5 MG TABLET PO PRN ×2 (08:47→16:24)
[2020-03-27] MEDS: ALBUTEROL SULFATE HFA 90 MCG/PUFF 8 GM INHALER IH PRN ×2 (09:46→16:59)
[2020-03-27 16:30] VITALS: BP 137/95
[2020-03-27] MEDS: GuaiFENesin/D-METHORPHAN [SUGAR-FREE] 200-20MG/10 ML SYRUP UDCUP PO PRN (18:04)
[2020-03-27] MEDS: ACETAMINOPHEN 325 MG TABLET PO PRN (19:20)
[2020-03-27] MEDS: DIVALPROEX SODIUM 500 MG DR TABLET PO SCH (20:26)
[2020-03-28 01:30] VITALS: BP 125/77
[2020-03-28] MEDS: ACETAMINOPHEN 325 MG TABLET PO PRN (05:15)
[2020-03-28 08:00] VITALS: BP 118/74
[2020-03-28] MEDS: OLANZapine 7.5 MG TABLET PO SCH ×2 (08:10→20:17)
[2020-03-28] MEDS: OMEGA-3/DHA/EPA/FISH OIL 1,000 MG CAPSULE PO SCH (08:10)
[2020-03-28] MEDS: MULTIVITAMINS WITH IRON TABLET PO SCH (08:10)
[2020-03-28] MEDS: AmLODIPine BESYLATE 5 MG TABLET PO SCH (08:10)
[2020-03-28] MEDS: NICOTINE 7 MG/24 HOUR PATCH TD SCH ×3 (08:10→12:19)
[2020-03-28] MEDS: LORazepam 2 MG TABLET PO PRN ×2 (08:10→16:07)
[2020-03-28] MEDS: GuaiFENesin/D-METHORPHAN [SUGAR-FREE] 200-20MG/10 ML SYRUP UDCUP PO PRN (09:49)
[2020-03-28] MEDS: HALOPERIDOL 5 MG TABLET PO PRN (12:18)
[2020-03-28] MEDS: ZOLPIDEM TARTRATE 10 MG TABLET PO PRN (20:17)
[2020-03-28] MEDS: DIVALPROEX SODIUM 500 MG DR TABLET PO SCH (20:17)
[2020-03-29 00:47] VITALS: BP 125/80
[2020-03-29 06:11] VITALS: BP 124/76
[2020-03-29] MEDS: ACETAMINOPHEN 325 MG TABLET PO PRN (06:11)
[2020-03-29] MEDS: OMEGA-3/DHA/EPA/FISH OIL 1,000 MG CAPSULE PO SCH (08:01)
[2020-03-29] MEDS: OLANZapine 7.5 MG TABLET PO SCH (08:01)
[2020-03-29] MEDS: LORazepam 2 MG TABLET PO PRN (08:01)
[2020-03-29] MEDS: NICOTINE 7 MG/24 HOUR PATCH TD SCH (08:01)
[2020-03-29] MEDS: MULTIVITAMINS WITH IRON TABLET PO SCH (08:01)
[2020-03-29] MEDS: AmLODIPine BESYLATE 5 MG TABLET PO SCH (08:01)
[2020-03-29 08:15] VITALS: BP 139/73
[2020-03-29] MEDS: ALBUTEROL SULFATE HFA 90 MCG/PUFF 8 GM INHALER IH PRN (08:45)
[2020-03-29] MEDS ORDERED: DIVA-112 PO (10:58)
[2020-03-29] MEDS ORDERED: OLAN7.5T9 PO (10:58)
[2020-03-29] MEDS: HALOPERIDOL 5 MG TABLET PO PRN (12:22)
== END 2020-03-29 14:55 | disposition home or self-care (01) | DRG 885 ==
LOC: B3A 09:50
DX: F25.0 Schizoaffective disorder, bipolar type (principal); R45.851 Suicidal ideations; Z79.899 Other long term (current) drug therapy; I10 Essential (primary) hypertension; J44.9 Chronic obstructive pulmonary disease, unspecified; Z59.0 Homelessness; E11.9 Type 2 diabetes mellitus without complications
CPT/HCPCS: 80307; 87081; J3535; Q0162

== ENCOUNTER 2022-12-11 14:30 | Inpatient (IN) | payer MEDICAID ==
[~2022-12-11] VITALS: Ht 154.9 cm; Wt 72.0 kg
[~2022-12-11 14:30] MED LIST changes: +DIVA-112 PO; -DIVA-80 PO; +OLAN7.5T18 PO; -OLAN7.5T9 PO
[2022-12-11] MEDS ORDERED: MAGNESIUM HYDROXIDE SUSPENSION 30 ML UDCUP PO PRN (20:30)
[2022-12-11] MEDS ORDERED: ALBUTEROL SULFATE HFA 90 MCG/PUFF 8 GM INHALER IH PRN (20:30)
[2022-12-11] MEDS ORDERED: NICOTINE 14 MG/24 HOUR PATCH TD PRN (20:30)
[2022-12-11] MEDS ORDERED: GuaiFENesin/D-METHORPHAN [SUGAR-FREE] 200-20MG/10 ML SYRUP UDCUP PO PRN (20:30)
[2022-12-11] MEDS ORDERED: CloNIDine HCL 0.1 MG TABLET PO PRN (20:30)
[2022-12-11] MEDS ORDERED: LOPERAMIDE HCL 2 MG CAPSULE PO PRN (20:30)
[2022-12-11] MEDS ORDERED: DOCUSATE SODIUM 100 MG CAPSULE PO PRN (20:30)
[2022-12-11] MEDS ORDERED: PETROLATUM,WHITE 28 GM JELLY TP PRN (20:30)
[2022-12-11 20:40] VITALS: BP 116/75
[2022-12-11] MEDS: IBUPROFEN 400 MG TABLET PO PRN (20:44)
[2022-12-11] MEDS: ZOLPIDEM TARTRATE 10 MG TABLET PO PRN (20:44)
[2022-12-11 21:50] LABS: COVID AG,FIA SOURCE NASAL SWAB
[2022-12-12 08:07] LABS: AMPHET/METH SCREEN,URINE NEGATIVE (NEGATIVE); BARBITURATE SCREEN, URINE NEGATIVE (NEGATIVE); BENZODIAZEPINES SCREEN,URINE NEGATIVE (NEGATIVE); CANNABINOID SCREEN,URINE NEGATIVE (NEGATIVE); COCAINE SCREEN,URINE NEGATIVE (NEGATIVE); METHADONE SCREEN, URINE NEGATIVE (NEGATIVE); OPIATE SCREEN,URINE NEGATIVE (NEGATIVE); PHENCYCLIDINE SCREEN,URINE NEGATIVE (NEGATIVE)
[2022-12-12 08:11] LABS: APPEARANCE,URINE HAZY (CLEAR); BILIRUBIN,URINE NEGATIVE (NEGATIVE); GLUCOSE, URINE (UA) NEGATIVE (NEGATIVE); KETONES,URINE NEGATIVE (NEGATIVE); LEUKOCYTE ESTERASE ,URINE NEGATIVE (NEGATIVE); NITRATE,URINE NEGATIVE (NEGATIVE); OCCULT BLOOD,URINE NEGATIVE (NEGATIVE); PROTEIN,URINE TRACE mg/dL (NEGATIVE); SPECIFIC GRAVITIY, URINE 1.026 (1.003-1.030); UROBILINOGEN,URINE <=1.0 mg/dL (<=1.0)
[2022-12-12 08:21] LABS: EOSINOPHILS % (AUTO) 1.8 % (1.0-6.0); HEMATOCRIT 34.6 % (36-46); HEMOGLOBIN 11.8 g/dL (12.0-16.0); LYMPHOCYTES # (AUTO) 5.6 K/uL (1.0-4.8); LYMPHOCYTES % (AUTO) 52.8 % (22.0-44.0); MEAN CORPUSCULAR HEMOGLOBIN 28.1 pg (26.0-34.0); MEAN CORPUSCULAR HGB CONC 34.3 G/dL (31.0-37.0); MEAN CORPUSCULAR VOLUME 82 fL (80-100); MONOCYTES # (AUTO) 1.1 K/uL (0.1-1.0); MONOCYTES % (AUTO) 9.9 % (2.0-9.0); NEUTROPHILS # (AUTO) 3.7 K/uL (1.8-7.7); NEUTROPHILS % (AUTO) 34.5 % (40.0-70.0); PLATELET COUNT (AUTO) 530 K/uL (150-450); RED BLOOD CELL COUNT(AUTO) 4.21 MIL/uL (4.00-5.20); RED CELL DISTRIBUTION WIDTH 18.4 % (11.5-14.5)
[2022-12-12 08:32] LABS: HEMOGLOBIN A1C 5.7 % (3.8-5.6)
[2022-12-12 08:37] VITALS: BP 139/91
[2022-12-12 08:37] LABS: BACTERIA,URINE Rare /HPF (None Seen); RBC,URINE 0-2 /HPF (0-2); WBC,URINE None Seen /HPF (0-5)
[2022-12-12 08:38] LABS: CALCIUM OXALATE CRYSTALS,UR Many /LPF (None Seen)
[2022-12-12 08:47] LABS: ALANINE AMINOTRANSFERASE 34 U/L (12-78); ALBUMIN 3.9 g/dL (3.4-5.0); ALKALINE PHOSPHATASE 73 U/L (46-116); ANION GAP 9 mmol/L (8-16); ASPARTATE AMINOTRANSFERASE 25 U/L (15-37); BILIRUBIN,TOTAL 0.1 mg/dL (0.1-1.0); CALCIUM, TOTAL 9.5 mg/dL (8.8-10.5); CARBON DIOXIDE 28 mmol/L (22-29); CHLORIDE 102 mmol/L (98-107); CREATININE 0.57 mg/dL (0.60-1.30); FREE T4 (FREE THYROXINE) 1.02 ng/dL (0.76-1.46); GLOMERULAR FILTR. RATE CALC > 60 mL/min (>60); GLUCOSE,RANDOM 104 mg/dL (70-110); HCG,QUANTITATIVE 1 mIU/mL (0-6); POTASSIUM 3.7 mmol/L (3.5-5.1); SODIUM SERUM 139 mmol/L (136-145); THYROID STIMULATING HORMONE 2.55 uIU/mL (0.36-3.74); TOTAL PROTEIN, SERUM 8.2 g/dL (6.4-8.2); UREA NITROGEN, BLOOD 14 mg/dL (7-18)
[2022-12-12 09:09] VITALS: BP 132/84
[2022-12-12] MEDS: ACETAMINOPHEN 325 MG TABLET PO PRN (09:09)
[2022-12-12] MEDS: HALOPERIDOL 5 MG TABLET PO PRN ×2 (10:58→15:01)
[2022-12-12] MEDS: LORazepam 2 MG TABLET PO PRN ×2 (10:58→15:01)
[2022-12-12] MEDS: MAG HYDROX/AL HYDROX/SIMETH ES 30 ML SUSPENSION UDCUP PO PRN (11:17)
[2022-12-12] MEDS ORDERED: HALOPERIDOL LACTATE 5 MG/ML VIAL IM PRN (14:45)
[2022-12-12] MEDS: CloZAPine 100 MG RAPDIS TABLET PO SCH ×2 (15:05→21:19)
[2022-12-12] MEDS: DIVALPROEX SODIUM 500 MG DR TABLET PO SCH (21:18)
[2022-12-13] MEDS: OMEGA-3/DHA/EPA/FISH OIL 1,000 MG CAPSULE PO SCH (08:05)
[2022-12-13] MEDS: CloZAPine 100 MG RAPDIS TABLET PO SCH ×2 (08:05→20:38)
[2022-12-13 08:26] LABS: CHOL/HDL RATIO 4.3 (3.9-5.7)
[2022-12-13 08:30] VITALS: BP 145/104
[2022-12-13] MEDS ORDERED: DIVA500T53 PO (11:38)
[2022-12-13] MEDS ORDERED: PALI234D IM (11:38)
[2022-12-13] MEDS ORDERED: MULT-199 PEG (11:38)
[2022-12-13] MEDS ORDERED: CHOL100062 PO (11:38)
[2022-12-13] MEDS: HALOPERIDOL 5 MG TABLET PO PRN (13:37)
[2022-12-13] MEDS: LORazepam 2 MG TABLET PO PRN (13:37)
[2022-12-13 16:03] VITALS: BP 130/90
[2022-12-13 19:45] VITALS: BP 132/88
[2022-12-13] MEDS: ACETAMINOPHEN 325 MG TABLET PO PRN (19:50)
[2022-12-13 20:11] VITALS: BP 132/86
[2022-12-13] MEDS: DIVALPROEX SODIUM 500 MG DR TABLET PO SCH (20:39)
[2022-12-13] MEDS: MAG HYDROX/AL HYDROX/SIMETH ES 30 ML SUSPENSION UDCUP PO PRN (23:09)
[2022-12-14 08:03] VITALS: BP 121/82
[2022-12-14] MEDS: CloZAPine 100 MG RAPDIS TABLET PO SCH ×2 (08:03→21:08)
[2022-12-14] MEDS: OMEGA-3/DHA/EPA/FISH OIL 1,000 MG CAPSULE PO SCH (08:03)
[2022-12-14 16:04] VITALS: BP 130/75
[2022-12-14] MEDS: DIVALPROEX SODIUM 500 MG DR TABLET PO SCH (21:08)
[2022-12-15] MEDS: CloZAPine 100 MG RAPDIS TABLET PO SCH ×2 (08:02→20:12)
[2022-12-15] MEDS: OMEGA-3/DHA/EPA/FISH OIL 1,000 MG CAPSULE PO SCH (08:04)
[2022-12-15 08:40] VITALS: BP 139/89
[2022-12-15] MEDS: DIVALPROEX SODIUM 500 MG DR TABLET PO SCH (20:12)
[2022-12-15] MEDS: MAG HYDROX/AL HYDROX/SIMETH ES 30 ML SUSPENSION UDCUP PO PRN (23:27)
[2022-12-16 08:25] VITALS: BP 129/73
[2022-12-16] MEDS: CloZAPine 100 MG RAPDIS TABLET PO SCH ×2 (08:37→20:12)
[2022-12-16] MEDS: OMEGA-3/DHA/EPA/FISH OIL 1,000 MG CAPSULE PO SCH (08:37)
[2022-12-16] MEDS: ONDANSETRON HCL 4 MG TABLET PO PRN (12:19)
[2022-12-16 17:07] VITALS: BP 150/89
[2022-12-16] MEDS: IBUPROFEN 400 MG TABLET PO PRN (18:36)
[2022-12-16 20:06] VITALS: BP 145/94
[2022-12-16] MEDS: DIVALPROEX SODIUM 500 MG DR TABLET PO SCH (20:12)
[2022-12-17] MEDS: OMEGA-3/DHA/EPA/FISH OIL 1,000 MG CAPSULE PO SCH (07:59)
[2022-12-17] MEDS: CloZAPine 100 MG RAPDIS TABLET PO SCH ×2 (08:00→21:22)
[2022-12-17 10:44] VITALS: BP 96/71
[2022-12-17 16:40] VITALS: BP 148/81
[2022-12-17] MEDS: LORazepam 2 MG TABLET PO PRN (18:54)
[2022-12-17] MEDS: IBUPROFEN 400 MG TABLET PO PRN (19:09)
[2022-12-17 20:00] VITALS: BP 143/82
[2022-12-17] MEDS: DIVALPROEX SODIUM 500 MG DR TABLET PO SCH (21:24)
[2022-12-17] MEDS: HALOPERIDOL 5 MG TABLET PO PRN (21:24)
[2022-12-18] MEDS: LORazepam 2 MG TABLET PO PRN ×2 (00:12→19:55)
[2022-12-18] MEDS: ZOLPIDEM TARTRATE 10 MG TABLET PO PRN ×2 (01:00→21:15)
[2022-12-18 06:36] LABS: GLUCOMETER DEV NAME(LOC) 3EX.2; GLUCOSE,POINT OF CARE 115 MG/DL (70-110)
[2022-12-18 07:15] LABS: COVID AG,FIA SOURCE NASAL SWAB
[2022-12-18] MEDS: CloZAPine 100 MG RAPDIS TABLET PO SCH ×2 (08:42→21:15)
[2022-12-18] MEDS: OMEGA-3/DHA/EPA/FISH OIL 1,000 MG CAPSULE PO SCH (08:42)
[2022-12-18 09:13] VITALS: BP 114/56
[2022-12-18 17:14] VITALS: BP 138/94
[2022-12-18] MEDS: HALOPERIDOL 5 MG TABLET PO PRN (19:55)
[2022-12-18 20:22] VITALS: BP 132/84
[2022-12-18] MEDS: DIVALPROEX SODIUM 500 MG DR TABLET PO SCH (21:15)
[2022-12-19 08:05] VITALS: BP 134/86
[2022-12-19] MEDS: CloZAPine 100 MG RAPDIS TABLET PO SCH ×2 (08:47→20:17)
[2022-12-19] MEDS: OMEGA-3/DHA/EPA/FISH OIL 1,000 MG CAPSULE PO SCH (08:47)
[2022-12-19 16:08] VITALS: BP 136/84
[2022-12-19] MEDS: IBUPROFEN 400 MG TABLET PO PRN (19:33)
[2022-12-19 19:34] VITALS: BP 133/76
[2022-12-19] MEDS: DIVALPROEX SODIUM 500 MG DR TABLET PO SCH (20:17)
[2022-12-19 20:46] VITALS: BP 141/71
[2022-12-19] MEDS: MAG HYDROX/AL HYDROX/SIMETH ES 30 ML SUSPENSION UDCUP PO PRN (22:54)
[2022-12-20] MEDS: CloZAPine 100 MG RAPDIS TABLET PO SCH ×2 (08:56→20:55)
[2022-12-20] MEDS: OMEGA-3/DHA/EPA/FISH OIL 1,000 MG CAPSULE PO SCH (08:56)
[2022-12-20 16:07] VITALS: BP 146/93
[2022-12-20] MEDS: DIVALPROEX SODIUM 500 MG DR TABLET PO SCH (20:54)
[2022-12-20] MEDS: LORazepam 2 MG TABLET PO PRN (20:55)
[2022-12-20] MEDS: ZOLPIDEM TARTRATE 10 MG TABLET PO PRN (21:20)
[2022-12-21 09:11] VITALS: BP 142/85
[2022-12-21] MEDS: CloZAPine 100 MG RAPDIS TABLET PO SCH ×2 (10:37→21:11)
[2022-12-21] MEDS: OMEGA-3/DHA/EPA/FISH OIL 1,000 MG CAPSULE PO SCH (10:37)
[2022-12-21 16:00] VITALS: BP 127/66
[2022-12-21 16:21] VITALS: BP 127/66
[2022-12-21] MEDS: IBUPROFEN 400 MG TABLET PO PRN (16:21)
[2022-12-21 17:21] VITALS: BP 131/71
[2022-12-21] MEDS: LORazepam 2 MG TABLET PO PRN (18:24)
[2022-12-21] MEDS: ZOLPIDEM TARTRATE 10 MG TABLET PO PRN (21:11)
[2022-12-21] MEDS: DIVALPROEX SODIUM 500 MG DR TABLET PO SCH (21:11)
[2022-12-21] MEDS: MAG HYDROX/AL HYDROX/SIMETH ES 30 ML SUSPENSION UDCUP PO PRN (22:10)
[2022-12-22 08:29] LABS: BASOPHILS % (AUTO) 0.4 % (0.0-2.0); EOSINOPHILS % (AUTO) 1.3 % (1.0-6.0); HEMATOCRIT 33.6 % (36-46); HEMOGLOBIN 11.5 g/dL (12.0-16.0); LYMPHOCYTES # (AUTO) 4.4 K/uL (1.0-4.8); LYMPHOCYTES % (AUTO) 51.3 % (22.0-44.0); MEAN CORPUSCULAR HGB CONC 34.2 G/dL (31.0-37.0); MEAN CORPUSCULAR VOLUME 82 fL (80-100); MONOCYTES # (AUTO) 0.7 K/uL (0.1-1.0); MONOCYTES % (AUTO) 7.9 % (2.0-9.0); NEUTROPHILS # (AUTO) 3.4 K/uL (1.8-7.7); NEUTROPHILS % (AUTO) 39.1 % (40.0-70.0); PLATELET COUNT (AUTO) 421 K/uL (150-450); RED BLOOD CELL COUNT(AUTO) 4.12 MIL/uL (4.00-5.20)
[2022-12-22] MEDS: CloZAPine 100 MG RAPDIS TABLET PO SCH ×2 (09:03→20:32)
[2022-12-22] MEDS: OMEGA-3/DHA/EPA/FISH OIL 1,000 MG CAPSULE PO SCH (09:04)
[2022-12-22 10:25] VITALS: BP 120/76
[2022-12-22] MEDS: IBUPROFEN 400 MG TABLET PO PRN (10:26)
[2022-12-22 16:26] VITALS: BP 129/96
[2022-12-22] MEDS: DIVALPROEX SODIUM 500 MG DR TABLET PO SCH (20:31)
[2022-12-22 20:38] VITALS: BP 149/82
[2022-12-23 09:11] VITALS: BP 138/90
[2022-12-23] MEDS: CloZAPine 100 MG RAPDIS TABLET PO SCH ×2 (11:29→20:47)
[2022-12-23] MEDS: OMEGA-3/DHA/EPA/FISH OIL 1,000 MG CAPSULE PO SCH (11:30)
[2022-12-23] MEDS: IBUPROFEN 400 MG TABLET PO PRN (11:33)
[2022-12-23] MEDS: ONDANSETRON HCL 4 MG TABLET PO PRN (12:16)
[2022-12-23] MEDS: MAG HYDROX/AL HYDROX/SIMETH ES 30 ML SUSPENSION UDCUP PO PRN (12:16)
[2022-12-23 17:29] VITALS: BP 143/88
[2022-12-23] MEDS: DIVALPROEX SODIUM 500 MG DR TABLET PO SCH (20:47)
[2022-12-23 21:07] VITALS: BP 125/70
[2022-12-24 08:40] VITALS: BP 122/83
[2022-12-24] MEDS: CloZAPine 100 MG RAPDIS TABLET PO SCH ×2 (08:40→20:44)
[2022-12-24] MEDS: OMEGA-3/DHA/EPA/FISH OIL 1,000 MG CAPSULE PO SCH (08:40)
[2022-12-24] MEDS ORDERED: TUBERCULIN, PURIFIED PROTEIN DERIVATIVE 5 TU/0.1 ML SYRINGE ID ONE (09:15)
[2022-12-24] MEDS: MAG HYDROX/AL HYDROX/SIMETH ES 30 ML SUSPENSION UDCUP PO PRN ×2 (15:03→21:24)
[2022-12-24 16:10] VITALS: BP 141/59
[2022-12-24 16:48] VITALS: BP 138/62
[2022-12-24] MEDS: IBUPROFEN 400 MG TABLET PO PRN (16:48)
[2022-12-24 20:26] VITALS: BP 148/69
[2022-12-24] MEDS: DIVALPROEX SODIUM 500 MG DR TABLET PO SCH (20:44)
[2022-12-25 08:24] LABS: COVID AG,FIA SOURCE NASAL SWAB
[2022-12-25] MEDS: OMEGA-3/DHA/EPA/FISH OIL 1,000 MG CAPSULE PO SCH (08:48)
[2022-12-25] MEDS: CloZAPine 100 MG RAPDIS TABLET PO SCH ×2 (08:48→20:58)
[2022-12-25] MEDS: IBUPROFEN 400 MG TABLET PO PRN ×2 (11:02→23:13)
[2022-12-25 11:33] VITALS: BP 145/100
[2022-12-25 12:03] VITALS: BP 123/88
[2022-12-25 20:10] VITALS: BP 130/90
[2022-12-25] MEDS: DIVALPROEX SODIUM 500 MG DR TABLET PO SCH (20:57)
[2022-12-25 23:10] VITALS: BP 129/85
[2022-12-26] MEDS: MAG HYDROX/AL HYDROX/SIMETH ES 30 ML SUSPENSION UDCUP PO PRN ×2 (03:18→22:47)
[2022-12-26] MEDS: CloZAPine 100 MG RAPDIS TABLET PO SCH ×2 (08:31→20:58)
[2022-12-26] MEDS: OMEGA-3/DHA/EPA/FISH OIL 1,000 MG CAPSULE PO SCH (08:31)
[2022-12-26 16:16] VITALS: BP 131/95
[2022-12-26 18:53] VITALS: BP 130/79
[2022-12-26] MEDS: IBUPROFEN 400 MG TABLET PO PRN (18:53)
[2022-12-26] MEDS: DIVALPROEX SODIUM 500 MG DR TABLET PO SCH (20:59)
[2022-12-27] MEDS: CloZAPine 100 MG RAPDIS TABLET PO SCH ×2 (08:24→20:23)
[2022-12-27] MEDS: OMEGA-3/DHA/EPA/FISH OIL 1,000 MG CAPSULE PO SCH (08:24)
[2022-12-27] MEDS: IBUPROFEN 400 MG TABLET PO PRN (15:15)
[2022-12-27 16:12] VITALS: BP 143/91
[2022-12-27 20:00] VITALS: BP 139/80
[2022-12-27] MEDS: DIVALPROEX SODIUM 500 MG DR TABLET PO SCH (20:23)
[2022-12-27] MEDS: MAG HYDROX/AL HYDROX/SIMETH ES 30 ML SUSPENSION UDCUP PO PRN (23:38)
[2022-12-28 08:30] VITALS: BP 125/67
[2022-12-28] MEDS: CloZAPine 100 MG RAPDIS TABLET PO SCH ×2 (09:14→20:24)
[2022-12-28] MEDS: OMEGA-3/DHA/EPA/FISH OIL 1,000 MG CAPSULE PO SCH (09:14)
[2022-12-28 17:48] VITALS: BP 137/95
[2022-12-28] MEDS: IBUPROFEN 400 MG TABLET PO PRN (18:42)
[2022-12-28] MEDS: DIVALPROEX SODIUM 500 MG DR TABLET PO SCH (20:24)
[2022-12-28 21:17] VITALS: BP 141/94
[2022-12-29] MEDS: CloZAPine 100 MG RAPDIS TABLET PO SCH ×2 (08:12→20:50)
[2022-12-29] MEDS: OMEGA-3/DHA/EPA/FISH OIL 1,000 MG CAPSULE PO SCH (08:12)
[2022-12-29 11:50] LABS: BASOPHILS % (AUTO) 1.3 % (0.0-2.0); EOSINOPHILS % (AUTO) 1.8 % (1.0-6.0); HEMATOCRIT 34.4 % (36-46); HEMOGLOBIN 11.8 g/dL (12.0-16.0); LYMPHOCYTES # (AUTO) 4.7 K/uL (1.0-4.8); LYMPHOCYTES % (AUTO) 48.2 % (22.0-44.0); MEAN CORPUSCULAR HGB CONC 34.4 G/dL (31.0-37.0); MEAN CORPUSCULAR VOLUME 81 fL (80-100); MONOCYTES # (AUTO) 0.8 K/uL (0.1-1.0); MONOCYTES % (AUTO) 8.6 % (2.0-9.0); NEUTROPHILS # (AUTO) 3.9 K/uL (1.8-7.7); NEUTROPHILS % (AUTO) 40.1 % (40.0-70.0); PLATELET COUNT (AUTO) 491 K/uL (150-450); RED BLOOD CELL COUNT(AUTO) 4.23 MIL/uL (4.00-5.20); RED CELL DISTRIBUTION WIDTH 18.6 % (11.5-14.5)
[2022-12-29] MEDS: MAG HYDROX/AL HYDROX/SIMETH ES 30 ML SUSPENSION UDCUP PO PRN (14:12)
[2022-12-29 19:35] VITALS: BP 130/90
[2022-12-29] MEDS: IBUPROFEN 400 MG TABLET PO PRN (19:41)
[2022-12-29 20:32] VITALS: BP 134/95
[2022-12-29] MEDS: DIVALPROEX SODIUM 500 MG DR TABLET PO SCH (20:49)
[2022-12-30] MEDS: MAG HYDROX/AL HYDROX/SIMETH ES 30 ML SUSPENSION UDCUP PO PRN (02:14)
[2022-12-30] MEDS: OMEGA-3/DHA/EPA/FISH OIL 1,000 MG CAPSULE PO SCH (08:31)
[2022-12-30] MEDS: CloZAPine 100 MG RAPDIS TABLET PO SCH ×2 (08:31→20:51)
[2022-12-30 08:36] VITALS: BP 146/89
[2022-12-30] MEDS: IBUPROFEN 400 MG TABLET PO PRN (14:56)
[2022-12-30 16:17] VITALS: BP 145/83
[2022-12-30 20:27] VITALS: BP 145/80
[2022-12-30] MEDS: DIVALPROEX SODIUM 500 MG DR TABLET PO SCH (20:51)
[2022-12-30] MEDS: LORazepam 2 MG TABLET PO PRN (20:51)
[2022-12-31] MEDS: CloZAPine 100 MG RAPDIS TABLET PO SCH ×2 (08:36→20:38)
[2022-12-31] MEDS: OMEGA-3/DHA/EPA/FISH OIL 1,000 MG CAPSULE PO SCH (08:37)
[2022-12-31 08:50] VITALS: BP 132/73
[2022-12-31] MEDS ORDERED: PALIPERIDONE PALMITATE 234 MG/1.5 ML SYRINGE IM SCH (09:00)
[2022-12-31 16:10] VITALS: BP 145/75
[2022-12-31] MEDS: MAG HYDROX/AL HYDROX/SIMETH ES 30 ML SUSPENSION UDCUP PO PRN (17:10)
[2022-12-31] MEDS: LORazepam 2 MG TABLET PO PRN (17:59)
[2022-12-31] MEDS: IBUPROFEN 400 MG TABLET PO PRN (18:43)
[2022-12-31] MEDS ORDERED: DIVA-112 PO ×2 (19:45→22:54)
[2022-12-31] MEDS ORDERED: PALI234D IM (19:45)
[2022-12-31] MEDS ORDERED: OMEG-135 PO ×2 (19:45→22:58)
[2022-12-31] MEDS ORDERED: CLOZ100T37 PO ×5 (19:45→22:50)
[2022-12-31] MEDS: DIVALPROEX SODIUM 500 MG DR TABLET PO SCH (20:38)
[2023-01-01] MEDS: OMEGA-3/DHA/EPA/FISH OIL 1,000 MG CAPSULE PO SCH (08:33)
[2023-01-01] MEDS: CloZAPine 100 MG RAPDIS TABLET PO SCH (08:34)
[2023-01-01 10:13] VITALS: BP 128/83
== END 2023-01-01 11:10 | DRG 750 ==
LOC: 3EC 19:20
PROVIDERS: ADMIT Psychiatry & Neurology Psychiatry; ATTEND Psychiatry & Neurology Psychiatry
DX: F25.0 Schizoaffective disorder, bipolar type (principal); R45.851 Suicidal ideations; E11.9 Type 2 diabetes mellitus without complications; I10 Essential (primary) hypertension; F19.10 Other psychoactive substance abuse, uncomplicated; E66.9 Obesity, unspecified; J44.9 Chronic obstructive pulmonary disease, unspecified; Z20.822 Contact with and (suspected) exposure to COVID-19; Z79.899 Other long term (current) drug therapy; Z68.30 Body mass index [BMI] 30.0-30.9, adult
CPT/HCPCS: 80053; 80061; 80164; 80307; 81001; 82962; 83036; 84436; 84439; 84443; 84702; 85025; 87081; Q0162

== ENCOUNTER 2024-05-31 11:27 | Inpatient (IN) | payer MEDICAID ==
[~2024-05-31] VITALS: Ht 157.5 cm; Wt 111.8 kg
[~2024-05-31 11:27] MED LIST changes: -AMLO-257 PO; +CLOZ100T37 PO; +DIVA-153 PO; -MVITFE PO; -OLAN7.5T18 PO; +PALI234D IM
[2024-05-31] MEDS ORDERED: DOCU-412 PO (12:51)
[2024-05-31] MEDS ORDERED: FAMO20 PO (12:51)
[2024-05-31] MEDS ORDERED: METO25XL PO (12:51)
[2024-05-31] MEDS ORDERED: RISP-32 PO (12:51)
[2024-05-31] MEDS ORDERED: HYDR25TA2 PO (12:51)
[2024-05-31] MEDS ORDERED: CLOZ100T61 PO ×2 (12:51)
[2024-05-31] MEDS ORDERED: DICL100G60 TP (13:06)
[2024-05-31] MEDS ORDERED: MULT-1336 PO (13:06)
[2024-05-31] MEDS ORDERED: LOSA-381 PO (13:06)
[2024-05-31 15:50] VITALS: BP 134/90; PULSE 90; RESP 16; TEMP 98; O2SAT 98
[2024-05-31] MEDS: NICOTINE POLACRILEX 2 MG LOZENGE PO PRN (17:29)
[2024-05-31] MEDS ORDERED: PNEUMOCOCCAL VACCINE POLYVALENT 0.5 ML SYRINGE [PPSV23] IM. ONE (19:00)
[2024-06-01] MEDS: LORazepam 2 MG TABLET PO PRN (00:47)
[2024-06-01 07:56] LABS: BASOPHILS % (AUTO) 0.6 % (0.0-2.0); HEMATOCRIT 34.1 % (36-46); HEMOGLOBIN 11.6 g/dL (12.0-16.0); LYMPHOCYTES # (AUTO) 4.5 K/uL (1.0-4.8); LYMPHOCYTES % (AUTO) 52.3 % (22.0-44.0); MEAN CORPUSCULAR HEMOGLOBIN 27.5 pg (26.0-34.0); MEAN CORPUSCULAR HGB CONC 33.9 G/dL (31.0-37.0); MEAN CORPUSCULAR VOLUME 81 fL (80-100); MONOCYTES # (AUTO) 0.6 K/uL (0.1-1.0); MONOCYTES % (AUTO) 7.6 % (2.0-9.0); NEUTROPHILS # (AUTO) 3.2 K/uL (1.8-7.7); NEUTROPHILS % (AUTO) 37.5 % (40.0-70.0); PLATELET COUNT (AUTO) 487 K/uL (150-450); RED BLOOD CELL COUNT(AUTO) 4.21 MIL/uL (4.00-5.20); RED CELL DISTRIBUTION WIDTH 17.1 % (11.5-14.5); WHITE BLOOD COUNT (AUTO) 8.5 K/uL (4.5-11.0)
[2024-06-01 08:06] LABS: HEMOGLOBIN A1C 5.7 % (3.8-5.6)
[2024-06-01 08:11] LABS: ALCOHOL, BLOOD (SERUM) < 3 mg/dL (0-10)
[2024-06-01] MEDS: DOCUSATE SODIUM 250 MG CAPSULE PO SCH (08:24)
[2024-06-01] MEDS: MULTIVITAMINS, THERAPEUTIC TABLET PO SCH (08:24)
[2024-06-01] MEDS: METOPROLOL SUCCINATE 25 MG ER TABLET PO SCH (08:24)
[2024-06-01] MEDS: FAMOTIDINE 20 MG TABLET PO SCH (08:24)
[2024-06-01] MEDS: OMEGA-3/DHA/EPA/FISH OIL 1,000 MG CAPSULE PO SCH (08:24)
[2024-06-01 08:26] LABS: ALANINE AMINOTRANSFERASE 31 U/L (12-78); ALBUMIN 3.2 g/dL (3.4-5.0); ALKALINE PHOSPHATASE 80 U/L (46-116); ANION GAP 11 mmol/L (8-16); ASPARTATE AMINOTRANSFERASE 27 U/L (15-37); BILIRUBIN,TOTAL 0.2 mg/dL (0.1-1.0); CALCIUM, TOTAL 8.9 mg/dL (8.8-10.5); CARBON DIOXIDE 28 mmol/L (22-29); CHLORIDE 103 mmol/L (98-107); CHOL/HDL RATIO 3.6 (3.9-5.7); CHOLESTEROL 143 mg/dL (131-200); FREE T4 (FREE THYROXINE) 0.95 ng/dL (0.76-1.46); GLOMERULAR FILTR. RATE CALC > 60 mL/min (>60); GLUCOSE,RANDOM 83 mg/dL (70-110); HDL CHOLESTEROL 40 mg/dL (40-60); LDL CHOL (CALC.) 66 mg/dL (0-130); POTASSIUM 4.3 mmol/L (3.5-5.1); SODIUM SERUM 142 mmol/L (136-145); TOTAL PROTEIN, SERUM 7.4 g/dL (6.4-8.2); TRIGLYCERIDES 183 mg/dL (15-150); UREA NITROGEN, BLOOD 10 mg/dL (7-18)
[2024-06-01] MEDS: LOSARTAN POTASSIUM 25 MG TABLET PO SCH (08:27)
[2024-06-01 08:30] VITALS: BP 141/100; PULSE 100; RESP 18; TEMP 97.6; O2SAT 98
[2024-06-01] MEDS ORDERED: LOPERAMIDE HCL 2 MG CAPSULE PO PRN (10:15)
[2024-06-01] MEDS ORDERED: NICOTINE 14 MG/24 HOUR PATCH TD PRN (10:15)
[2024-06-01] MEDS ORDERED: CloNIDine HCL 0.1 MG TABLET PO PRN (10:15)
[2024-06-01] MEDS ORDERED: PETROLATUM,WHITE 28 GM JELLY TP PRN (10:15)
[2024-06-01] MEDS ORDERED: GuaiFENesin/D-METHORPHAN [SUGAR-FREE] 200-20MG/10 ML SYRUP UDCUP PO PRN (10:15)
[2024-06-01 10:21] VITALS: BP 136/92; PULSE 90; RESP 18; TEMP 97.8; O2SAT 98
[2024-06-01] MEDS: ACETAMINOPHEN 325 MG TABLET PO PRN (10:21)
[2024-06-01 11:21] VITALS: RESP 18; O2SAT 100
[2024-06-01] MEDS: PALIPERIDONE PALMITATE 234 MG/1.5 ML SYRINGE IM SCH (15:51)
[2024-06-01] MEDS: DIVALPROEX SODIUM 500 MG DR TABLET PO SCH (20:34)
[2024-06-01 21:27] VITALS: BP 135/88; PULSE 88; RESP 18; TEMP 97.6
[2024-06-01] MEDS: IBUPROFEN 400 MG TABLET PO PRN (23:41)
[2024-06-01 23:42] VITALS: BP 134/90; PULSE 96; RESP 17; TEMP 97.2; O2SAT 98
[2024-06-02] MEDS: HALOPERIDOL 5 MG TABLET PO PRN (01:54)
[2024-06-02] MEDS: MAGNESIUM HYDROXIDE SUSPENSION 30 ML UDCUP PO PRN (02:57)
[2024-06-02 06:07] LABS: HEPATITIS C AB (EIA) Non Reactive (Non Reactive)
[2024-06-02 08:14] VITALS: BP 151/94; PULSE 98; RESP 18; TEMP 97.6; O2SAT 98
[2024-06-02 08:51] LABS: BASOPHILS % (AUTO) 0.3 % (0.0-2.0); EOSINOPHILS % (AUTO) 2.2 % (1.0-6.0); HEMATOCRIT 34.4 % (36-46); HEMOGLOBIN 11.8 g/dL (12.0-16.0); LYMPHOCYTES # (AUTO) 5.6 K/uL (1.0-4.8); LYMPHOCYTES % (AUTO) 55.3 % (22.0-44.0); MEAN CORPUSCULAR HEMOGLOBIN 27.5 pg (26.0-34.0); MEAN CORPUSCULAR HGB CONC 34.1 G/dL (31.0-37.0); MEAN CORPUSCULAR VOLUME 81 fL (80-100); MONOCYTES # (AUTO) 0.5 K/uL (0.1-1.0); MONOCYTES % (AUTO) 5.3 % (2.0-9.0); NEUTROPHILS # (AUTO) 3.7 K/uL (1.8-7.7); NEUTROPHILS % (AUTO) 36.9 % (40.0-70.0); PLATELET COUNT (AUTO) 494 K/uL (150-450); RED BLOOD CELL COUNT(AUTO) 4.27 MIL/uL (4.00-5.20); WHITE BLOOD COUNT (AUTO) 10.1 K/uL (4.5-11.0)
[2024-06-02 08:52] LABS: APPEARANCE,URINE CLEAR (CLEAR); BILIRUBIN,URINE NEGATIVE (NEGATIVE); COLOR,URINE COLORLESS (YELLOW); GLUCOSE, URINE (UA) NEGATIVE (NEGATIVE); KETONES,URINE NEGATIVE (NEGATIVE); LEUKOCYTE ESTERASE ,URINE NEGATIVE (NEGATIVE); NITRATE,URINE NEGATIVE (NEGATIVE); OCCULT BLOOD,URINE NEGATIVE (NEGATIVE); PH,URINE 6.5 (5.0-8.0); PH,URINE DRUG SCREEN 6.5 (5.0-8.0); PROTEIN,URINE NEGATIVE (NEGATIVE); SPECIFIC GRAVITIY, URINE 1.009 (1.003-1.030); UROBILINOGEN,URINE <=1.0 mg/dL (<=1.0)
[2024-06-02 09:06] LABS: ALCOHOL, URINE DRUG SCREEN NEGATIVE (NEGATIVE); AMPHET/METH SCREEN,URINE NEGATIVE (NEGATIVE); BARBITURATE SCREEN, URINE NEGATIVE (NEGATIVE); BENZODIAZEPINES SCREEN,URINE NEGATIVE (NEGATIVE); CANNABINOID SCREEN,URINE NEGATIVE (NEGATIVE); COCAINE SCREEN,URINE NEGATIVE (NEGATIVE); METHADONE SCREEN, URINE NEGATIVE (NEGATIVE); OPIATE SCREEN,URINE NEGATIVE (NEGATIVE); PHENCYCLIDINE SCREEN,URINE NEGATIVE (NEGATIVE)
[2024-06-02 09:12] LABS: HEMOGLOBIN A1C 5.7 % (3.8-5.6)
[2024-06-02 09:23] LABS: ALANINE AMINOTRANSFERASE 38 U/L (12-78); ALBUMIN 3.6 g/dL (3.4-5.0); ALKALINE PHOSPHATASE 82 U/L (46-116); ANION GAP 11 mmol/L (8-16); ASPARTATE AMINOTRANSFERASE 45 U/L (15-37); BILIRUBIN,TOTAL 0.2 mg/dL (0.1-1.0); CALCIUM, TOTAL 9.1 mg/dL (8.8-10.5); CARBON DIOXIDE 27 mmol/L (22-29); CHLORIDE 103 mmol/L (98-107); CHOL/HDL RATIO 3.3 (3.9-5.7); CHOLESTEROL 153 mg/dL (131-200); CREATININE 0.63 mg/dL (0.60-1.30); GLOMERULAR FILTR. RATE CALC > 60 mL/min (>60); GLUCOSE,RANDOM 73 mg/dL (70-110); HDL CHOLESTEROL 46 mg/dL (40-60); LDL CHOL (CALC.) 75 mg/dL (0-130); POTASSIUM 3.8 mmol/L (3.5-5.1); SODIUM SERUM 141 mmol/L (136-145); THYROID STIMULATING HORMONE 1.62 uIU/mL (0.36-3.74); TOTAL PROTEIN, SERUM 7.8 g/dL (6.4-8.2); TRIGLYCERIDES 158 mg/dL (15-150); UREA NITROGEN, BLOOD 8 mg/dL (7-18)
[2024-06-02 10:07] LABS: TREPONEMA PALLIDUM AB -TPPA Reactive (Non Reactive)
[2024-06-02 19:40] VITALS: BP 145/85; PULSE 91; RESP 18; TEMP 97.5; O2SAT 97
[2024-06-02 20:24] VITALS: BP 118/69; PULSE 85; RESP 16; TEMP 97.3; O2SAT 98
[2024-06-02 20:40] VITALS: RESP 17; O2SAT 98
[2024-06-03 03:47] VITALS: RESP 17
[2024-06-03] MEDS: DOXYCYCLINE HYCLATE 100 MG TABLET PO SCH (08:03)
[2024-06-03 08:23] VITALS: BP 142/94; PULSE 94; RESP 16; TEMP 96.9; O2SAT 98
[2024-06-03] MEDS: MAG HYDROX/ALUMINUM HYD/SIMETH ES 30 ML SUSPENSION UDCUP PO PRN (15:04)
[2024-06-03 16:20] VITALS: RESP 18
[2024-06-03 17:28] VITALS: RESP 18
[2024-06-03 23:53] VITALS: BP 122/80; PULSE 84; RESP 18; TEMP 97; O2SAT 98
[2024-06-04] VITALS (8 sets, daily range): BP systolic 119–132; BP diastolic 75–86; PULSE 89–93; RESP 15–18; TEMP 96.9–97.8; O2SAT 96
[2024-06-04 09:12] LABS: APPEARANCE,URINE CLEAR (CLEAR); BILIRUBIN,URINE NEGATIVE (NEGATIVE); COLOR,URINE COLORLESS (YELLOW); GLUCOSE, URINE (UA) NEGATIVE (NEGATIVE); KETONES,URINE NEGATIVE (NEGATIVE); LEUKOCYTE ESTERASE ,URINE NEGATIVE (NEGATIVE); NITRATE,URINE NEGATIVE (NEGATIVE); OCCULT BLOOD,URINE NEGATIVE (NEGATIVE); PROTEIN,URINE NEGATIVE (NEGATIVE); SPECIFIC GRAVITIY, URINE 1.008 (1.003-1.030); UROBILINOGEN,URINE <=1.0 mg/dL (<=1.0)
[2024-06-04 09:25] LABS: ALCOHOL, URINE DRUG SCREEN NEGATIVE (NEGATIVE); AMPHET/METH SCREEN,URINE NEGATIVE (NEGATIVE); BARBITURATE SCREEN, URINE NEGATIVE (NEGATIVE); BENZODIAZEPINES SCREEN,URINE NEGATIVE (NEGATIVE); CANNABINOID SCREEN,URINE NEGATIVE (NEGATIVE); COCAINE SCREEN,URINE NEGATIVE (NEGATIVE); METHADONE SCREEN, URINE NEGATIVE (NEGATIVE); OPIATE SCREEN,URINE NEGATIVE (NEGATIVE); PHENCYCLIDINE SCREEN,URINE NEGATIVE (NEGATIVE)
[2024-06-04] MEDS: ZOLPIDEM TARTRATE 10 MG TABLET PO PRN (20:26)
[2024-06-05] MEDS: ONDANSETRON 4 MG TABLET PO PRN (07:30)
[2024-06-05 08:48] VITALS: BP 133/85; PULSE 96; RESP 17; TEMP 97.4; O2SAT 98
[2024-06-05 12:23] VITALS: RESP 17
[2024-06-05 13:23] VITALS: RESP 16
[2024-06-05 20:22] VITALS: BP 120/76; PULSE 76; RESP 18; TEMP 96.8; O2SAT 98
[2024-06-06] VITALS (7 sets, daily range): BP systolic 120–127; BP diastolic 72–78; PULSE 82–88; RESP 16–18; TEMP 97.3–97.8; O2SAT 97–98
[2024-06-06] MEDS: ALBUTEROL SULFATE HFA 90 MCG/PUFF 8 GM INHALER IH PRN (17:13)
[2024-06-07 01:01] VITALS: RESP 18; O2SAT 98
[2024-06-07 08:24] VITALS: BP 142/96; PULSE 89; RESP 16; TEMP 96.9; O2SAT 98
[2024-06-07] MEDS ORDERED: DIVA-112 PO (11:52)
[2024-06-07] MEDS ORDERED: PALI234D IM (11:52)
[2024-06-07 15:07] LABS: CLOZAPINE & NORCLOZAPINE 66 ng/mL; NORCLOZAPINE 28 ng/mL (Not Estab.)
[2024-06-07 19:53] VITALS: RESP 18
[2024-06-07 21:58] VITALS: RESP 18
[2024-06-08 08:00] VITALS: BP 147/100; RESP 18
[2024-06-08] MEDS: DOCUSATE SODIUM 100 MG CAPSULE PO PRN (08:01)
[2024-06-08 08:25] VITALS: BP 147/100; PULSE 90; RESP 18; TEMP 98.2; O2SAT 99
[2024-06-08 09:00] VITALS: BP 142/99; RESP 18
[2024-06-08 16:14] VITALS: BP 147/99; RESP 17; O2SAT 99
[2024-06-08] MEDS: CloZAPine 100 MG TABLET PO SCH (20:07)
[2024-06-09 00:49] VITALS: BP 138/92; PULSE 86; RESP 17; TEMP 98; O2SAT 99
[2024-06-09 08:15] VITALS: BP 146/94; PULSE 100; RESP 18; TEMP 97.6; O2SAT 99
[2024-06-09 08:54] LABS: BASOPHILS % (AUTO) 0.5 % (0.0-2.0); EOSINOPHILS % (AUTO) 0.9 % (1.0-6.0); HEMATOCRIT 34.6 % (36-46); HEMOGLOBIN 11.6 g/dL (12.0-16.0); LYMPHOCYTES # (AUTO) 4.7 K/uL (1.0-4.8); LYMPHOCYTES % (AUTO) 51.9 % (22.0-44.0); MEAN CORPUSCULAR HEMOGLOBIN 26.9 pg (26.0-34.0); MEAN CORPUSCULAR HGB CONC 33.5 G/dL (31.0-37.0); MEAN CORPUSCULAR VOLUME 80 fL (80-100); MONOCYTES # (AUTO) 0.4 K/uL (0.1-1.0); MONOCYTES % (AUTO) 4.9 % (2.0-9.0); NEUTROPHILS # (AUTO) 3.8 K/uL (1.8-7.7); NEUTROPHILS % (AUTO) 41.8 % (40.0-70.0); PLATELET COUNT (AUTO) 445 K/uL (150-450); RED BLOOD CELL COUNT(AUTO) 4.31 MIL/uL (4.00-5.20); RED CELL DISTRIBUTION WIDTH 16.7 % (11.5-14.5); WHITE BLOOD COUNT (AUTO) 9.1 K/uL (4.5-11.0)
[2024-06-09 20:32] VITALS: RESP 19
[2024-06-10 08:55] VITALS: BP 120/70; PULSE 99; RESP 18; TEMP 97.8; O2SAT 95
[2024-06-10] MEDS ORDERED: OMEG100033 PO (10:44)
[2024-06-10] MEDS ORDERED: CLOZ100T61 PO (10:44)
[2024-06-10] MEDS ORDERED: LOSA-417 PO (10:44)
[2024-06-10] MEDS ORDERED: METO25XL PO (10:44)
[2024-06-10] MEDS ORDERED: FAMO20 PO (10:44)
[2024-06-10] MEDS ORDERED: DOXY-354 PO (11:05)
== END 2024-06-10 14:54 | disposition home or self-care (01) | DRG 750 ==
LOC: B3A 12:51
PROVIDERS: ADMIT Psychiatry & Neurology Child & Adolescent Psychiatry; ATTEND Psychiatry & Neurology Child & Adolescent Psychiatry
PROC: GZHZZZZ Group Psychotherapy (ICD-10-PCS; principal; 2024-06-01)
PROC: GZ58ZZZ Individual Psychotherapy, Cognitive-Behavioral (ICD-10-PCS; 2024-06-01)
PROC: GZ56ZZZ Individual Psychotherapy, Supportive (ICD-10-PCS; 2024-06-01)
DX: F25.0 Schizoaffective disorder, bipolar type (principal); E11.9 Type 2 diabetes mellitus without complications; E66.01 Morbid (severe) obesity due to excess calories; I10 Essential (primary) hypertension; Z20.822 Contact with and (suspected) exposure to COVID-19; J44.89 Other specified chronic obstructive pulmonary disease; Z79.899 Other long term (current) drug therapy; Z88.0 Allergy status to penicillin; Z88.1 Allergy status to other antibiotic agents; Z68.41 Body mass index [BMI] 40.0-44.9, adult
CPT/HCPCS: 80053; 80061; 80159; 80164; 80307; 81003; 83036; 84436; 84439; 84443; 85025; 86592; 86593; 86780; 86803; 87340; G0480; J3535; Q0162

== ENCOUNTER 2024-09-11 08:23 | Inpatient (IN) | payer MEDICAID ==
[~2024-09-11 08:23] MED LIST changes: -CLOZ100T37 PO; +CLOZ100T61 PO; -DIVA-153 PO; +DOXY-354 PO; +FAMO20 PO; +LOSA-417 PO; +METO25XL PO; -OMEG-135 PO; +OMEG100033 PO
[2024-09-11 09:30] VITALS: BP 126/82; PULSE 100; RESP 18; TEMP 96.7; O2SAT 100
[2024-09-11] MEDS ORDERED: ZOLPIDEM TARTRATE 10 MG TABLET PO PRN (16:30)
[2024-09-11] MEDS ORDERED: OMEPRAZOLE 20 MG CAPSULE PO PRN (20:45)
[2024-09-11] MEDS ORDERED: LOPERAMIDE HCL 2 MG CAPSULE PO PRN (20:45)
[2024-09-11] MEDS ORDERED: PETROLATUM,WHITE 28 GM JELLY TP PRN (20:45)
[2024-09-11] MEDS ORDERED: CloNIDine HCL 0.1 MG TABLET PO PRN (20:45)
[2024-09-11] MEDS ORDERED: MAG HYDROX/ALUMINUM HYD/SIMETH ES 30 ML SUSPENSION UDCUP PO PRN (20:45)
[2024-09-11] MEDS ORDERED: DOCUSATE SODIUM 100 MG CAPSULE PO PRN (20:45)
[2024-09-11] MEDS ORDERED: ONDANSETRON 4 MG TABLET PO PRN (20:45)
[2024-09-11] MEDS ORDERED: BACITRACIN 28 GM OINTMENT TP PRN (20:45)
[2024-09-11] MEDS ORDERED: MAGNESIUM HYDROXIDE SUSPENSION 30 ML UDCUP PO PRN (20:45)
[2024-09-12 01:01] VITALS: RESP 20
[2024-09-12 02:00] VITALS: RESP 20
[2024-09-12] MEDS: LOSARTAN POTASSIUM 25 MG TABLET PO SCH (08:26)
[2024-09-12] MEDS: OMEGA-3/DHA/EPA/FISH OIL 1,000 MG CAPSULE PO SCH (08:26)
[2024-09-12] MEDS: METOPROLOL SUCCINATE 25 MG ER TABLET PO SCH (08:26)
[2024-09-12 08:30] VITALS: RESP 16
[2024-09-12 11:31] VITALS: RESP 17
[2024-09-12] MEDS: ACETAMINOPHEN 325 MG TABLET PO PRN (11:31)
[2024-09-12 12:31] VITALS: RESP 16
[2024-09-12] MEDS: NICOTINE POLACRILEX 2 MG LOZENGE PO PRN (15:51)
[2024-09-12] MEDS ORDERED: PALIPERIDONE PALMITATE 156 MG/ML SYRINGE IM ONE (16:00)
[2024-09-12] MEDS: ALBUTEROL SULFATE HFA 90 MCG/PUFF 8 GM INHALER IH PRN (16:28)
[2024-09-12] MEDS: DIVALPROEX SODIUM 500 MG DR TABLET PO SCH (20:22)
[2024-09-12] MEDS: CloZAPine 100 MG TABLET PO SCH (20:22)
[2024-09-12 20:58] VITALS: RESP 18
[2024-09-13 08:21] VITALS: RESP 18
[2024-09-13] MEDS: LORazepam 2 MG TABLET PO PRN (09:43)
[2024-09-13] MEDS ORDERED: LORazepam 2 MG/ML VIAL ONE (16:32)
[2024-09-13] MEDS: HALOPERIDOL LACTATE 5 MG/ML VIAL IM ONE (16:45)
[2024-09-13] MEDS: LORazepam 2 MG/ML VIAL IM ONE (16:45)
[2024-09-13] MEDS: DiphenhydrAMINE HCL 50 MG/ML VIAL IM ONE (16:45)
[2024-09-14 05:53] VITALS: BP 138/88; PULSE 105; RESP 19; TEMP 97.4; O2SAT 98
[2024-09-14] MEDS: BENZOCAINE/MENTHOL LOZENGE PO PRN (06:16)
[2024-09-14] MEDS: HALOPERIDOL 5 MG TABLET PO PRN (07:59)
[2024-09-14 08:25] LABS: HEMOGLOBIN A1C 5.2 % (3.8-5.6)
[2024-09-14 08:38] VITALS: RESP 18
[2024-09-14 08:42] LABS: ALANINE AMINOTRANSFERASE 36 U/L (12-78); ALBUMIN 3.5 g/dL (3.4-5.0); ALKALINE PHOSPHATASE 75 U/L (46-116); ANION GAP 10 mmol/L (8-16); ASPARTATE AMINOTRANSFERASE 22 U/L (15-37); BILIRUBIN,TOTAL 0.2 mg/dL (0.1-1.0); CALCIUM, TOTAL 9.2 mg/dL (8.8-10.5); CARBON DIOXIDE 29 mmol/L (22-29); CHLORIDE 101 mmol/L (98-107); CHOL/HDL RATIO 3.7 (3.9-5.7); CHOLESTEROL 161 mg/dL (131-200); CREATININE 0.82 mg/dL (0.60-1.30); FREE T4 (FREE THYROXINE) 1.13 ng/dL (0.76-1.46); GLOMERULAR FILTR. RATE CALC > 60 mL/min (>60); GLUCOSE,RANDOM 107 mg/dL (70-110); HDL CHOLESTEROL 43 mg/dL (40-60); LDL CHOL (CALC.) 100 mg/dL (0-130); POTASSIUM 3.6 mmol/L (3.5-5.1); SODIUM SERUM 140 mmol/L (136-145); THYROID STIMULATING HORMONE 0.71 uIU/mL (0.36-3.74); TOTAL PROTEIN, SERUM 7.8 g/dL (6.4-8.2); TRIGLYCERIDES 88 mg/dL (15-150); UREA NITROGEN, BLOOD 7 mg/dL (7-18)
[2024-09-14 20:37] VITALS: RESP 17
[2024-09-15 08:39] VITALS: RESP 16
[2024-09-15 09:08] LABS: HEMOGLOBIN A1C 5.3 % (3.8-5.6)
[2024-09-15] MEDS: IBUPROFEN 600 MG TABLET PO PRN (09:19)
[2024-09-15 09:20] VITALS: BP 124/78; PULSE 78; RESP 18; TEMP 97.8; O2SAT 99
[2024-09-15 10:20] VITALS: RESP 16
[2024-09-15 20:11] VITALS: BP 150/105; PULSE 92; RESP 19; TEMP 97.5; O2SAT 97
[2024-09-16 08:35] VITALS: BP 148/96; PULSE 105; RESP 17; TEMP 97.7; O2SAT 99
[2024-09-16 14:16] LABS: GLUCOMETER DEV NAME(LOC) BV3S.; GLUCOSE,POINT OF CARE 107 MG/DL (70-110)
== END 2024-09-16 12:26 | disposition home or self-care (01) | DRG 750 ==
LOC: B3A 16:28
PROVIDERS: ADMIT Psychiatry & Neurology Psychiatry; ATTEND Psychiatry & Neurology Psychiatry
DX: F25.0 Schizoaffective disorder, bipolar type (principal); F41.9 Anxiety disorder, unspecified; G47.00 Insomnia, unspecified; J45.909 Unspecified asthma, uncomplicated; K59.00 Constipation, unspecified; Z88.0 Allergy status to penicillin
CPT/HCPCS: 80053; 80061; 80164; 82962; 83036; 84439; 84443; J1200; J1630; J2060; J3535

== ENCOUNTER 2024-09-11 11:21 | Emergency (ER) | payer MEDICAID, OTHER ==
[~2024-09-11] VITALS: Ht 157.5 cm; Wt 111.0 kg
[2024-09-11 12:15] VITALS: TEMP 98.4
[2024-09-11 14:13] LABS: BASOPHILS % (AUTO) 1.1 % (0.0-2.0); EOSINOPHILS % (AUTO) 2.5 % (1.0-6.0); HEMATOCRIT 35.6 % (36-46); HEMOGLOBIN 12.5 g/dL (12.0-16.0); LYMPHOCYTES # (AUTO) 4.7 K/uL (1.0-4.8); LYMPHOCYTES % (AUTO) 52.8 % (22.0-44.0); MEAN CORPUSCULAR HEMOGLOBIN 28.9 pg (26.0-34.0); MEAN CORPUSCULAR HGB CONC 35.1 G/dL (31.0-37.0); MEAN CORPUSCULAR VOLUME 82 fL (80-100); MONOCYTES # (AUTO) 0.8 K/uL (0.1-1.0); MONOCYTES % (AUTO) 8.6 % (2.0-9.0); NEUTROPHILS # (AUTO) 3.1 K/uL (1.8-7.7); PLATELET COUNT (AUTO) 497 K/uL (150-450); RED BLOOD CELL COUNT(AUTO) 4.32 MIL/uL (4.00-5.20); RED CELL DISTRIBUTION WIDTH 17.2 % (11.5-14.5); WHITE BLOOD COUNT (AUTO) 8.8 K/uL (4.5-11.0)
[2024-09-11 14:24] LABS: ANION GAP 8 mmol/L (8-16); CALCIUM, TOTAL 9.2 mg/dL (8.8-10.5); CARBON DIOXIDE 29 mmol/L (22-29); CHLORIDE 99 mmol/L (98-107); CREATININE 0.67 mg/dL (0.60-1.30); GLOMERULAR FILTR. RATE CALC > 60 mL/min (>60); GLUCOSE,RANDOM 81 mg/dL (70-110); POTASSIUM 3.1 mmol/L (3.5-5.1); SODIUM SERUM 136 mmol/L (136-145); UREA NITROGEN, BLOOD 4 mg/dL (7-18)
[2024-09-11 14:38] LABS: HCG,QUANTITATIVE < 1 mIU/mL (0-6)
[2024-09-11 14:42] LABS: TROPONIN I-HIGH SENSITIVITY Less Than 4 ng/L (<51)
[2024-09-11] MEDS: POTASSIUM CHLORIDE 20 MEQ ER TABLET PO ONE (15:08)
[2024-09-11 15:32] LABS: COVID AG,FIA SOURCE NASAL SWAB
[2024-09-11 15:54] LABS: SARS-COV2 (COVID) ANTIGEN,FIA Negative (Negative)
[2024-09-11 16:15] VITALS: BP 137/52; PULSE 82; RESP 18; O2SAT 95
[2024-09-11 16:25] LABS: ALCOHOL, BLOOD (SERUM) < 3 mg/dL (0-10)
== END 2024-09-11 16:45 ==
LOC: EMS 11:21
DX: F25.0 Schizoaffective disorder, bipolar type (principal); J45.909 Unspecified asthma, uncomplicated; F17.210 Nicotine dependence, cigarettes, uncomplicated; Z88.0 Allergy status to penicillin; Z20.822 Contact with and (suspected) exposure to COVID-19
CPT/HCPCS: 99285; 87426; 80048; 84484; 84702; 85025; 36415; 93005; G0480

== ENCOUNTER 2024-09-27 20:21 | Inpatient (IN) | payer MEDICAID ==
[~2024-09-27] VITALS: Ht 157.5 cm; Wt 115.4 kg
[~2024-09-27 20:21] MED LIST changes: -DOXY-354 PO; -FAMO20 PO; -OMEG100033 PO; -PALI234D IM
[2024-09-27 21:35] LABS: GLUCOMETER DEV NAME(LOC) POC.BV; POC SARS-COV2 AG, FIA NEGATIVE (NEGATIVE)
[2024-09-27 23:00] VITALS: BP 128/84; PULSE 94; RESP 16; TEMP 98.6; O2SAT 95
[2024-09-27] MEDS: PNEUMOCOCCAL VACCINE POLYVALENT 0.5 ML SYRINGE [PPSV23] IM. ONE (23:45)
[2024-09-28] MEDS: INFLUENZA VIRUS VACCINE TVS (6MO+) 2024-25/PF 45 MCG/0.5 ML SYRINGE IM. ONE (02:01)
[2024-09-28 06:45] LABS: GLUCOMETER DEV NAME(LOC) BV3S.; GLUCOSE,POINT OF CARE 92 MG/DL (70-110)
[2024-09-28 08:21] VITALS: RESP 16
[2024-09-28] MEDS: LORazepam 2 MG TABLET PO PRN (08:22)
[2024-09-28] MEDS: HALOPERIDOL 5 MG TABLET PO PRN (08:22)
[2024-09-28 08:44] LABS: HEMOGLOBIN A1C 5.5 % (3.8-5.6)
[2024-09-28 08:57] LABS: ALANINE AMINOTRANSFERASE 34 U/L (12-78); ALBUMIN 3.1 g/dL (3.4-5.0); ALKALINE PHOSPHATASE 68 U/L (46-116); ANION GAP 4 mmol/L (8-16); ASPARTATE AMINOTRANSFERASE 28 U/L (15-37); BILIRUBIN,TOTAL 0.2 mg/dL (0.1-1.0); CALCIUM, TOTAL 8.8 mg/dL (8.8-10.5); CARBON DIOXIDE 31 mmol/L (22-29); CHLORIDE 105 mmol/L (98-107); CHOL/HDL RATIO 3.8 (3.9-5.7); CHOLESTEROL 161 mg/dL (131-200); CREATININE 0.67 mg/dL (0.60-1.30); FREE T4 (FREE THYROXINE) 1.01 ng/dL (0.76-1.46); GLOMERULAR FILTR. RATE CALC > 60 mL/min (>60); GLUCOSE,RANDOM 87 mg/dL (70-110); HCG,QUANTITATIVE < 1 mIU/mL (0-6); HDL CHOLESTEROL 42 mg/dL (40-60); LDL CHOL (CALC.) 102 mg/dL (0-130); POTASSIUM 3.4 mmol/L (3.5-5.1); SODIUM SERUM 140 mmol/L (136-145); THYROID STIMULATING HORMONE 1.19 uIU/mL (0.36-3.74); TOTAL PROTEIN, SERUM 6.9 g/dL (6.4-8.2); TRIGLYCERIDES 86 mg/dL (15-150); UREA NITROGEN, BLOOD 4 mg/dL (7-18)
[2024-09-28 08:58] LABS: BASOPHILS % (AUTO) 0.4 % (0.0-2.0); HEMATOCRIT 33.7 % (36-46); HEMOGLOBIN 11.4 g/dL (12.0-16.0); LYMPHOCYTES # (AUTO) 3.3 K/uL (1.0-4.8); LYMPHOCYTES % (AUTO) 45.9 % (22.0-44.0); MEAN CORPUSCULAR HEMOGLOBIN 27.9 pg (26.0-34.0); MEAN CORPUSCULAR HGB CONC 33.9 G/dL (31.0-37.0); MEAN CORPUSCULAR VOLUME 82 fL (80-100); MONOCYTES # (AUTO) 0.7 K/uL (0.1-1.0); MONOCYTES % (AUTO) 9.2 % (2.0-9.0); NEUTROPHILS # (AUTO) 3.1 K/uL (1.8-7.7); NEUTROPHILS % (AUTO) 43.5 % (40.0-70.0); PLATELET COUNT (AUTO) 529 K/uL (150-450); RED CELL DISTRIBUTION WIDTH 16.7 % (11.5-14.5); WHITE BLOOD COUNT (AUTO) 7.1 K/uL (4.5-11.0)
[2024-09-28 11:46] LABS: GLUCOMETER DEV NAME(LOC) BV3S.; GLUCOSE,POINT OF CARE 103 MG/DL (70-110)
[2024-09-28] MEDS: POTASSIUM CHLORIDE 20 MEQ ER TABLET PO ONE (12:44)
[2024-09-28] MEDS: NICOTINE POLACRILEX 2 MG LOZENGE PO PRN (13:36)
[2024-09-28 17:15] LABS: GLUCOMETER DEV NAME(LOC) BV3S.; GLUCOSE,POINT OF CARE 96 MG/DL (70-110)
[2024-09-28 20:12] VITALS: BP 103/61; PULSE 94; RESP 19; TEMP 98; O2SAT 96
[2024-09-28 20:56] LABS: GLUCOMETER DEV NAME(LOC) BV3S.; GLUCOSE,POINT OF CARE 106 MG/DL (70-110)
[2024-09-29] MEDS ORDERED: DOCUSATE SODIUM 100 MG CAPSULE PO PRN (05:30)
[2024-09-29] MEDS ORDERED: MAGNESIUM HYDROXIDE SUSPENSION 30 ML UDCUP PO PRN (05:30)
[2024-09-29] MEDS ORDERED: CloNIDine HCL 0.1 MG TABLET PO PRN (05:30)
[2024-09-29] MEDS ORDERED: BACITRACIN 28 GM OINTMENT TP PRN (05:30)
[2024-09-29 06:10] LABS: GLUCOMETER DEV NAME(LOC) BV3S.; GLUCOSE,POINT OF CARE 82 MG/DL (70-110)
[2024-09-29 08:11] VITALS: RESP 18
[2024-09-29 11:21] LABS: GLUCOMETER DEV NAME(LOC) BV3S.; GLUCOSE,POINT OF CARE 120 MG/DL (70-110)
[2024-09-29] MEDS: DIVALPROEX SODIUM 500 MG DR TABLET PO SCH (16:09)
[2024-09-29 16:26] LABS: GLUCOMETER DEV NAME(LOC) BV3S.; GLUCOSE,POINT OF CARE 96 MG/DL (70-110)
[2024-09-29] MEDS: CloZAPine 100 MG TABLET PO SCH (20:16)
[2024-09-29 20:55] LABS: GLUCOMETER DEV NAME(LOC) BV3S.; GLUCOSE,POINT OF CARE 102 MG/DL (70-110)
[2024-09-30 01:30] VITALS: RESP 18
[2024-09-30 06:20] LABS: GLUCOMETER DEV NAME(LOC) BV3S.; GLUCOSE,POINT OF CARE 91 MG/DL (70-110)
[2024-09-30] MEDS: CloZAPine 100 MG TABLET PO SCH (08:11)
[2024-09-30 08:14] VITALS: RESP 18
[2024-09-30 12:00] LABS: GLUCOMETER DEV NAME(LOC) BV3S.; GLUCOSE,POINT OF CARE 112 MG/DL (70-110)
[2024-09-30] MEDS: ACETAMINOPHEN 325 MG TABLET PO PRN (17:51)
[2024-09-30] MEDS ORDERED: HALOPERIDOL LACTATE 5 MG/ML VIAL ONE (17:57)
[2024-09-30] MEDS ORDERED: LORazepam 2 MG/ML VIAL ONE (17:57)
[2024-09-30] MEDS ORDERED: DiphenhydrAMINE HCL 50 MG/ML VIAL ONE (17:57)
[2024-09-30] MEDS: DiphenhydrAMINE HCL 50 MG/ML VIAL IM ONE (18:01)
[2024-09-30] MEDS: LORazepam 2 MG/ML VIAL IM ONE (18:15)
[2024-09-30] MEDS: HALOPERIDOL LACTATE 5 MG/ML VIAL IM ONE (18:17)
[2024-09-30 20:03] VITALS: RESP 16
[2024-10-01 08:07] VITALS: RESP 18
[2024-10-01 12:50] LABS: GLUCOMETER DEV NAME(LOC) BV3S.; GLUCOSE,POINT OF CARE 118 MG/DL (70-110)
[2024-10-01 17:01] LABS: GLUCOMETER DEV NAME(LOC) BV3S.; GLUCOSE,POINT OF CARE 113 MG/DL (70-110)
[2024-10-01] MEDS: IBUPROFEN 600 MG TABLET PO PRN (17:32)
[2024-10-01 21:01] VITALS: BP 140/94; PULSE 98; RESP 19; TEMP 98.2
[2024-10-02 09:00] VITALS: RESP 19
[2024-10-02 19:37] VITALS: RESP 18
[2024-10-02 20:05] VITALS: RESP 19
[2024-10-02 20:37] VITALS: RESP 18
[2024-10-03 08:41] VITALS: RESP 16
[2024-10-03 14:15] VITALS: RESP 16
[2024-10-03 15:13] VITALS: RESP 16
[2024-10-03 21:13] VITALS: RESP 18
[2024-10-04 12:41] VITALS: RESP 16
[2024-10-04 18:55] VITALS: RESP 18
[2024-10-04 19:55] VITALS: RESP 18
[2024-10-04 21:08] VITALS: BP 164/108; PULSE 104; RESP 18; TEMP 98.6
[2024-10-05 08:05] VITALS: RESP 16
[2024-10-05 08:56] LABS: BASOPHILS % (AUTO) 1.2 % (0.0-2.0); EOSINOPHILS % (AUTO) 2.5 % (1.0-6.0); HEMATOCRIT 35.1 % (36-46); HEMOGLOBIN 12.2 g/dL (12.0-16.0); LYMPHOCYTES # (AUTO) 3.9 K/uL (1.0-4.8); MEAN CORPUSCULAR HEMOGLOBIN 28.4 pg (26.0-34.0); MEAN CORPUSCULAR HGB CONC 34.6 G/dL (31.0-37.0); MEAN CORPUSCULAR VOLUME 82 fL (80-100); MONOCYTES # (AUTO) 0.6 K/uL (0.1-1.0); MONOCYTES % (AUTO) 7.9 % (2.0-9.0); NEUTROPHILS # (AUTO) 2.6 K/uL (1.8-7.7); NEUTROPHILS % (AUTO) 35.4 % (40.0-70.0); PLATELET COUNT (AUTO) 464 K/uL (150-450); RED BLOOD CELL COUNT(AUTO) 4.29 MIL/uL (4.00-5.20); RED CELL DISTRIBUTION WIDTH 16.9 % (11.5-14.5); WHITE BLOOD COUNT (AUTO) 7.3 K/uL (4.5-11.0)
[2024-10-05 20:01] VITALS: BP 144/95; PULSE 100; RESP 16; TEMP 97.8; O2SAT 97
[2024-10-06 08:35] VITALS: O2SAT 96
[2024-10-06 15:02] VITALS: RESP 18
[2024-10-06] MEDS: ALBUTEROL SULFATE HFA 90 MCG/PUFF 8 GM INHALER IH PRN (16:39)
[2024-10-07 08:53] VITALS: RESP 18
[2024-10-07] MEDS: TUBERCULIN, PURIFIED PROTEIN DERIVATIVE 5 TU/0.1 ML SYRINGE ID ONE (15:21)
[2024-10-07] MEDS: ONDANSETRON 4 MG TABLET PO PRN (16:51)
[2024-10-08 08:20] VITALS: RESP 17
[2024-10-08 14:34] VITALS: RESP 18
[2024-10-08 15:34] VITALS: RESP 18
[2024-10-08 23:39] VITALS: RESP 18
[2024-10-09 08:17] VITALS: RESP 18
[2024-10-09 09:09] VITALS: RESP 17
[2024-10-09 16:59] VITALS: RESP 18
[2024-10-09 17:59] VITALS: RESP 18
[2024-10-09] MEDS: BENZOCAINE/MENTHOL [CEPACOL] LOZENGE PO PRN (19:07)
[2024-10-09 20:56] VITALS: RESP 18
[2024-10-10 08:12] VITALS: RESP 16
[2024-10-10 08:12] LABS: APPEARANCE,URINE HAZY (CLEAR); BILIRUBIN,URINE NEGATIVE (NEGATIVE); COLOR,URINE YELLOW (YELLOW); GLUCOSE, URINE (UA) NEGATIVE (NEGATIVE); LEUKOCYTE ESTERASE ,URINE NEGATIVE (NEGATIVE); NITRATE,URINE NEGATIVE (NEGATIVE); OCCULT BLOOD,URINE LARGE (NEGATIVE); PROTEIN,URINE 30-70 mg/dL (NEGATIVE); SPECIFIC GRAVITIY, URINE 1.025 (1.003-1.030); UROBILINOGEN,URINE <=1.0 mg/dL (<=1.0)
[2024-10-10 08:25] LABS: ALCOHOL, URINE DRUG SCREEN NEGATIVE (NEGATIVE); AMPHET/METH SCREEN,URINE NEGATIVE (NEGATIVE); BARBITURATE SCREEN, URINE NEGATIVE (NEGATIVE); BENZODIAZEPINES SCREEN,URINE NEGATIVE (NEGATIVE); CANNABINOID SCREEN,URINE NEGATIVE (NEGATIVE); COCAINE SCREEN,URINE NEGATIVE (NEGATIVE); METHADONE SCREEN, URINE NEGATIVE (NEGATIVE); OPIATE SCREEN,URINE NEGATIVE (NEGATIVE); PHENCYCLIDINE SCREEN,URINE NEGATIVE (NEGATIVE)
[2024-10-10 09:08] LABS: BACTERIA,URINE None Seen /HPF (None Seen); SQUAMOUS EPITHELIAL CELL,UR Few /LPF (None Seen); WBC,URINE 0-2 /HPF (0-5)
[2024-10-10 11:25] VITALS: RESP 18
[2024-10-10 12:25] VITALS: RESP 16
[2024-10-10 19:24] VITALS: RESP 17
[2024-10-10 20:24] VITALS: RESP 16
[2024-10-11 08:17] VITALS: RESP 16
[2024-10-11 12:10] LABS: GLUCOMETER DEV NAME(LOC) BV3S.; GLUCOSE,POINT OF CARE 135 MG/DL (70-110)
[2024-10-11 20:05] VITALS: RESP 18
[2024-10-12 08:04] VITALS: RESP 18
[2024-10-12 09:39] LABS: BASOPHILS % (AUTO) 0.8 % (0.0-2.0); EOSINOPHILS % (AUTO) 1.5 % (1.0-6.0); HEMATOCRIT 35.8 % (36-46); HEMOGLOBIN 12.2 g/dL (12.0-16.0); LYMPHOCYTES # (AUTO) 3.8 K/uL (1.0-4.8); LYMPHOCYTES % (AUTO) 52.4 % (22.0-44.0); MEAN CORPUSCULAR HEMOGLOBIN 27.9 pg (26.0-34.0); MEAN CORPUSCULAR VOLUME 82 fL (80-100); MONOCYTES # (AUTO) 0.6 K/uL (0.1-1.0); MONOCYTES % (AUTO) 8.7 % (2.0-9.0); NEUTROPHILS # (AUTO) 2.6 K/uL (1.8-7.7); NEUTROPHILS % (AUTO) 36.6 % (40.0-70.0); PLATELET COUNT (AUTO) 407 K/uL (150-450); RED BLOOD CELL COUNT(AUTO) 4.37 MIL/uL (4.00-5.20); RED CELL DISTRIBUTION WIDTH 16.8 % (11.5-14.5); WHITE BLOOD COUNT (AUTO) 7.2 K/uL (4.5-11.0)
[2024-10-12 10:26] VITALS: RESP 16
[2024-10-12 10:55] VITALS: BP 155/95; PULSE 100; RESP 17; TEMP 97.5; O2SAT 99
[2024-10-12] MEDS ORDERED: LOSARTAN POTASSIUM 25 MG TABLET PO SCH (11:00)
[2024-10-12] MEDS: METOPROLOL SUCCINATE 25 MG ER TABLET PO SCH (11:13)
[2024-10-12 11:26] VITALS: RESP 16
[2024-10-12 11:26] LABS: GLUCOMETER DEV NAME(LOC) BV3S.; GLUCOSE,POINT OF CARE 118 MG/DL (70-110)
[2024-10-12 11:55] VITALS: BP 129/78; PULSE 95; RESP 16; TEMP 97; O2SAT 100
[2024-10-12] MEDS: LOSARTAN POTASSIUM 50 MG TABLET PO SCH (16:42)
[2024-10-13 08:27] VITALS: RESP 16
[2024-10-13 20:00] VITALS: RESP 18
[2024-10-14 08:40] VITALS: RESP 16
[2024-10-14 15:01] VITALS: RESP 17
[2024-10-14 16:01] VITALS: RESP 16
[2024-10-14 20:30] VITALS: RESP 16
[2024-10-15 08:28] VITALS: RESP 16
[2024-10-15 08:40] VITALS: BP 129/92; PULSE 98; RESP 17; TEMP 96.8; O2SAT 98
[2024-10-15 11:36] VITALS: RESP 16
[2024-10-15 12:06] LABS: GLUCOMETER DEV NAME(LOC) BV3S.; GLUCOSE,POINT OF CARE 154 MG/DL (70-110)
[2024-10-15 20:04] VITALS: RESP 16
[2024-10-15] MEDS: ZOLPIDEM TARTRATE 10 MG TABLET PO PRN (20:37)
[2024-10-16 08:02] VITALS: RESP 18
[2024-10-16 09:28] VITALS: RESP 19; O2SAT 99
[2024-10-16 10:28] VITALS: RESP 17
[2024-10-16 14:15] VITALS: RESP 18; O2SAT 98
[2024-10-16 20:29] VITALS: RESP 18
[2024-10-17] VITALS (7 sets, daily range): BP systolic 124–147; BP diastolic 88–98; PULSE 92–100; RESP 16–18; TEMP 97.5–97.8; O2SAT 96
[2024-10-17 12:00] LABS: GLUCOMETER DEV NAME(LOC) BV3S.; GLUCOSE,POINT OF CARE 153 MG/DL (70-110)
[2024-10-17] MEDS: MAG HYDROX/ALUMINUM HYD/SIMETH ES 30 ML SUSPENSION UDCUP PO PRN (14:04)
[2024-10-18] VITALS (7 sets, daily range): BP systolic 127–137; BP diastolic 83–91; PULSE 89–100; RESP 16–18; TEMP 96.6–97.3; O2SAT 97–98
[2024-10-18 11:40] LABS: GLUCOMETER DEV NAME(LOC) BV3S.; GLUCOSE,POINT OF CARE 129 MG/DL (70-110)
[2024-10-18 20:55] LABS: GLUCOMETER DEV NAME(LOC) BV3S.; GLUCOSE,POINT OF CARE 142 MG/DL (70-110)
[2024-10-19 08:01] VITALS: BP 127/80; PULSE 102; RESP 16; TEMP 97.3; O2SAT 97
[2024-10-19 09:01] VITALS: RESP 16
[2024-10-19 09:06] LABS: BASOPHILS % (AUTO) 0.2 % (0.0-2.0); EOSINOPHILS % (AUTO) 1.5 % (1.0-6.0); HEMATOCRIT 31.2 % (36-46); HEMOGLOBIN 10.7 g/dL (12.0-16.0); LYMPHOCYTES # (AUTO) 4.4 K/uL (1.0-4.8); LYMPHOCYTES % (AUTO) 48.3 % (22.0-44.0); MEAN CORPUSCULAR HEMOGLOBIN 28.1 pg (26.0-34.0); MEAN CORPUSCULAR HGB CONC 34.1 G/dL (31.0-37.0); MEAN CORPUSCULAR VOLUME 82 fL (80-100); MONOCYTES # (AUTO) 1.1 K/uL (0.1-1.0); NEUTROPHILS # (AUTO) 3.5 K/uL (1.8-7.7); PLATELET COUNT (AUTO) 455 K/uL (150-450); RED BLOOD CELL COUNT(AUTO) 3.79 MIL/uL (4.00-5.20); RED CELL DISTRIBUTION WIDTH 16.9 % (11.5-14.5); WHITE BLOOD COUNT (AUTO) 9.1 K/uL (4.5-11.0)
[2024-10-19 10:01] VITALS: RESP 16
[2024-10-19 12:21] LABS: GLUCOMETER DEV NAME(LOC) BV3S.; GLUCOSE,POINT OF CARE 114 MG/DL (70-110)
[2024-10-19 20:01] VITALS: BP 140/90; PULSE 105; RESP 18; TEMP 97.5; O2SAT 98
[2024-10-20 08:01] VITALS: RESP 18
[2024-10-20 08:13] VITALS: BP 138/83; PULSE 98; RESP 16; TEMP 97.8
[2024-10-20 09:05] VITALS: RESP 17
[2024-10-20 10:05] VITALS: RESP 16
[2024-10-20 11:21] LABS: GLUCOMETER DEV NAME(LOC) BV3S.; GLUCOSE,POINT OF CARE 122 MG/DL (70-110)
[2024-10-20 18:04] VITALS: RESP 18
[2024-10-20 19:04] VITALS: RESP 18
[2024-10-21] VITALS (8 sets, daily range): BP systolic 110; BP diastolic 73; PULSE 94; RESP 16–20; TEMP 98.1
[2024-10-22 07:42] VITALS: RESP 16
[2024-10-22 08:00] VITALS: RESP 16
[2024-10-22 08:42] VITALS: RESP 16
[2024-10-22 13:13] VITALS: RESP 17
[2024-10-22 14:13] VITALS: RESP 16
[2024-10-22 20:06] VITALS: RESP 18
[2024-10-23 10:04] VITALS: RESP 18
[2024-10-23 20:02] VITALS: RESP 18
[2024-10-24 08:09] VITALS: BP 129/78; PULSE 84; RESP 16; TEMP 98.3; O2SAT 97
[2024-10-24 20:04] VITALS: RESP 16
[2024-10-25 08:12] VITALS: RESP 16
[2024-10-25 17:13] VITALS: RESP 18
[2024-10-25 18:13] VITALS: RESP 18
[2024-10-26 08:26] VITALS: RESP 18
[2024-10-26 08:34] LABS: BASOPHILS % (AUTO) 0.6 % (0.0-2.0); EOSINOPHILS % (AUTO) 1.6 % (1.0-6.0); HEMATOCRIT 32.2 % (36-46); LYMPHOCYTES # (AUTO) 4.1 K/uL (1.0-4.8); LYMPHOCYTES % (AUTO) 53.6 % (22.0-44.0); MEAN CORPUSCULAR HEMOGLOBIN 27.9 pg (26.0-34.0); MEAN CORPUSCULAR HGB CONC 34.2 G/dL (31.0-37.0); MEAN CORPUSCULAR VOLUME 82 fL (80-100); MONOCYTES # (AUTO) 0.7 K/uL (0.1-1.0); MONOCYTES % (AUTO) 8.9 % (2.0-9.0); NEUTROPHILS # (AUTO) 2.7 K/uL (1.8-7.7); NEUTROPHILS % (AUTO) 35.3 % (40.0-70.0); PLATELET COUNT (AUTO) 392 K/uL (150-450); RED BLOOD CELL COUNT(AUTO) 3.96 MIL/uL (4.00-5.20); RED CELL DISTRIBUTION WIDTH 17.3 % (11.5-14.5); WHITE BLOOD COUNT (AUTO) 7.6 K/uL (4.5-11.0)
[2024-10-26] MEDS: LOPERAMIDE HCL 2 MG CAPSULE PO PRN (09:17)
[2024-10-26 12:55] VITALS: RESP 18
[2024-10-26 13:58] VITALS: RESP 17
[2024-10-27] VITALS (7 sets, daily range): BP systolic 117–135; BP diastolic 71–91; PULSE 99–100; RESP 16–18; TEMP 96.1–97.6; O2SAT 95–96
[2024-10-27 11:55] LABS: GLUCOMETER DEV NAME(LOC) BV3S.; GLUCOSE,POINT OF CARE 121 MG/DL (70-110)
[2024-10-27 16:46] LABS: GLUCOMETER DEV NAME(LOC) BV3S.; GLUCOSE,POINT OF CARE 104 MG/DL (70-110)
[2024-10-27 23:31] LABS: GLUCOMETER DEV NAME(LOC) BV3S.; GLUCOSE,POINT OF CARE 177 MG/DL (70-110)
[2024-10-28 09:10] VITALS: BP 136/77; PULSE 97; RESP 18; TEMP 97.4; O2SAT 97
[2024-10-28 20:17] VITALS: BP 142/98; PULSE 97; RESP 18; TEMP 97.4; O2SAT 97
[2024-10-28 20:35] LABS: GLUCOMETER DEV NAME(LOC) BV3S.; GLUCOSE,POINT OF CARE 129 MG/DL (70-110)
[2024-10-29 08:29] VITALS: RESP 16
[2024-10-29 08:45] VITALS: BP 129/86; PULSE 76; RESP 16; TEMP 97.5; O2SAT 94
[2024-10-29] MEDS: TUBERCULIN, PURIFIED PROTEIN DERIVATIVE 5 TU/0.1 ML SYRINGE ID ONE (15:42)
[2024-10-29 16:55] LABS: GLUCOMETER DEV NAME(LOC) BV3S.; GLUCOSE,POINT OF CARE 147 MG/DL (70-110)
[2024-10-29 19:53] VITALS: RESP 16
[2024-10-30 08:11] VITALS: RESP 16
[2024-10-30] MEDS: PETROLATUM,WHITE 28 GM JELLY TP PRN (18:45)
[2024-10-30 20:03] VITALS: BP 116/79; PULSE 99; RESP 17; TEMP 97.4
[2024-10-31 08:07] VITALS: RESP 16
[2024-10-31 08:35] VITALS: BP 124/78; PULSE 100; RESP 18; TEMP 97.7
[2024-10-31 18:56] VITALS: RESP 18
[2024-10-31 19:56] VITALS: RESP 17
[2024-10-31 20:35] VITALS: RESP 15
[2024-11-01 09:11] VITALS: BP 111/75; PULSE 98; RESP 17; TEMP 97.5
[2024-11-01 18:06] VITALS: RESP 18
[2024-11-01] MEDS: HALOPERIDOL 5 MG TABLET PO PRN (18:56)
[2024-11-01 19:06] VITALS: RESP 18
[2024-11-01 21:48] VITALS: BP 129/83; PULSE 95; RESP 18; TEMP 97.6
[2024-11-02 08:15] VITALS: RESP 16
[2024-11-02 20:12] VITALS: BP 148/96; PULSE 92; RESP 16; TEMP 97.2; O2SAT 97
[2024-11-03 08:18] VITALS: RESP 18
[2024-11-03 08:54] LABS: BASOPHILS % (AUTO) 0.8 % (0.0-2.0); EOSINOPHILS % (AUTO) 2.1 % (1.0-6.0); HEMATOCRIT 32.6 % (36-46); HEMOGLOBIN 11.4 g/dL (12.0-16.0); LYMPHOCYTES # (AUTO) 4.6 K/uL (1.0-4.8); LYMPHOCYTES % (AUTO) 59.6 % (22.0-44.0); MEAN CORPUSCULAR HEMOGLOBIN 28.5 pg (26.0-34.0); MEAN CORPUSCULAR HGB CONC 34.8 G/dL (31.0-37.0); MEAN CORPUSCULAR VOLUME 82 fL (80-100); MONOCYTES # (AUTO) 0.6 K/uL (0.1-1.0); MONOCYTES % (AUTO) 8.5 % (2.0-9.0); NEUTROPHILS # (AUTO) 2.2 K/uL (1.8-7.7); PLATELET COUNT (AUTO) 515 K/uL (150-450); RED BLOOD CELL COUNT(AUTO) 3.99 MIL/uL (4.00-5.20); RED CELL DISTRIBUTION WIDTH 18.2 % (11.5-14.5); WHITE BLOOD COUNT (AUTO) 7.6 K/uL (4.5-11.0)
[2024-11-03 16:45] VITALS: RESP 18
[2024-11-03 17:45] VITALS: RESP 18
[2024-11-03 20:11] VITALS: RESP 19
[2024-11-04 08:19] VITALS: RESP 16
[2024-11-04] MEDS: OMEPRAZOLE 20 MG CAPSULE PO PRN (14:42)
[2024-11-05 08:26] VITALS: BP 132/92; PULSE 100; RESP 16; TEMP 97.1; O2SAT 96
[2024-11-05 14:00] VITALS: RESP 17
[2024-11-05 15:00] VITALS: RESP 16
[2024-11-05 20:00] VITALS: RESP 17
[2024-11-06 09:35] VITALS: RESP 18
[2024-11-06 20:17] VITALS: RESP 16
[2024-11-07 08:22] VITALS: RESP 16
[2024-11-07 20:09] VITALS: RESP 18
[2024-11-07 20:45] VITALS: RESP 18
[2024-11-07 21:43] VITALS: RESP 16
[2024-11-08 08:22] VITALS: RESP 16
[2024-11-08 08:45] VITALS: BP 120/73; PULSE 100; RESP 18; O2SAT 95
[2024-11-08 20:01] VITALS: RESP 19
[2024-11-08 20:07] VITALS: BP 128/74; PULSE 99; RESP 18; TEMP 97.8; O2SAT 98
[2024-11-09 08:13] VITALS: RESP 18
[2024-11-09 08:24] VITALS: BP 133/89; PULSE 100; RESP 17; TEMP 97.6
[2024-11-09 20:00] VITALS: BP 140/87; PULSE 99; RESP 17; TEMP 97.7; O2SAT 97
[2024-11-09 20:43] VITALS: RESP 18
[2024-11-10 08:22] VITALS: RESP 16
[2024-11-10 09:34] LABS: BASOPHILS % (AUTO) 0.7 % (0.0-2.0); EOSINOPHILS % (AUTO) 2.3 % (1.0-6.0); HEMATOCRIT 32.8 % (36-46); HEMOGLOBIN 11.3 g/dL (12.0-16.0); LYMPHOCYTES # (AUTO) 3.9 K/uL (1.0-4.8); LYMPHOCYTES % (AUTO) 58.9 % (22.0-44.0); MEAN CORPUSCULAR HEMOGLOBIN 28.4 pg (26.0-34.0); MEAN CORPUSCULAR HGB CONC 34.6 G/dL (31.0-37.0); MEAN CORPUSCULAR VOLUME 82 fL (80-100); MONOCYTES # (AUTO) 0.5 K/uL (0.1-1.0); MONOCYTES % (AUTO) 7.8 % (2.0-9.0); NEUTROPHILS % (AUTO) 30.3 % (40.0-70.0); PLATELET COUNT (AUTO) 371 K/uL (150-450); RED BLOOD CELL COUNT(AUTO) 3.99 MIL/uL (4.00-5.20); WHITE BLOOD COUNT (AUTO) 6.6 K/uL (4.5-11.0)
[2024-11-10 20:00] VITALS: RESP 16
[2024-11-11] MEDS: LOSARTAN POTASSIUM 25 MG TABLET PO SCH (09:04)
[2024-11-11 11:00] VITALS: BP 132/86; PULSE 92; RESP 18; TEMP 98.1; O2SAT 98
[2024-11-11 23:09] VITALS: BP 133/80; PULSE 97; RESP 18; TEMP 98.9; O2SAT 96
[2024-11-12 07:35] LABS: GLUCOMETER DEV NAME(LOC) 3E.C; GLUCOSE,POINT OF CARE 92 MG/DL (70-110)
[2024-11-12 11:03] VITALS: BP 109/75; PULSE 100; RESP 16; TEMP 97.7; O2SAT 97
[2024-11-12 20:59] VITALS: BP 136/87; PULSE 95; RESP 18; TEMP 97.1; O2SAT 96
[2024-11-12 21:21] LABS: GLUCOMETER DEV NAME(LOC) 3E.C; GLUCOSE,POINT OF CARE 129 MG/DL (70-110)
[2024-11-13 07:00] LABS: GLUCOMETER DEV NAME(LOC) 3E.C; GLUCOSE,POINT OF CARE 88 MG/DL (70-110)
[2024-11-13 08:34] VITALS: RESP 18
[2024-11-13 08:50] VITALS: BP 106/78; PULSE 106; RESP 18; TEMP 98.3; O2SAT 96
[2024-11-13 23:00] VITALS: BP 152/92; PULSE 80; RESP 18; TEMP 97.7; O2SAT 98
[2024-11-14] VITALS (7 sets, daily range): BP systolic 123–138; BP diastolic 82–88; PULSE 85–100; RESP 17–18; TEMP 97.2–97.6; O2SAT 98–99
[2024-11-15 08:00] VITALS: BP 148/84; PULSE 86; RESP 18; TEMP 97.6; O2SAT 97
[2024-11-15 20:55] VITALS: BP 140/80; PULSE 79; RESP 20; TEMP 97.5; O2SAT 98
[2024-11-15 22:01] VITALS: RESP 18
[2024-11-15 23:14] VITALS: BP 129/72; PULSE 97; RESP 18; TEMP 97; O2SAT 99
[2024-11-16 09:15] VITALS: RESP 18; TEMP 98
[2024-11-16 15:09] VITALS: BP 126/70; PULSE 98; RESP 18; TEMP 97.9; O2SAT 98
[2024-11-16 22:48] VITALS: BP 154/77; PULSE 99; RESP 18; TEMP 97.5; O2SAT 97
[2024-11-17 08:46] LABS: BASOPHILS % (AUTO) 0.4 % (0.0-2.0); EOSINOPHILS % (AUTO) 1.7 % (1.0-6.0); HEMATOCRIT 34.8 % (36-46); HEMOGLOBIN 11.9 g/dL (12.0-16.0); LYMPHOCYTES # (AUTO) 4.6 K/uL (1.0-4.8); LYMPHOCYTES % (AUTO) 62.6 % (22.0-44.0); MEAN CORPUSCULAR HGB CONC 34.2 G/dL (31.0-37.0); MEAN CORPUSCULAR VOLUME 82 fL (80-100); MONOCYTES # (AUTO) 0.5 K/uL (0.1-1.0); MONOCYTES % (AUTO) 6.8 % (2.0-9.0); NEUTROPHILS # (AUTO) 2.1 K/uL (1.8-7.7); NEUTROPHILS % (AUTO) 28.5 % (40.0-70.0); PLATELET COUNT (AUTO) 433 K/uL (150-450); RED BLOOD CELL COUNT(AUTO) 4.24 MIL/uL (4.00-5.20); RED CELL DISTRIBUTION WIDTH 17.7 % (11.5-14.5); WHITE BLOOD COUNT (AUTO) 7.4 K/uL (4.5-11.0)
[2024-11-17 09:14] VITALS: RESP 17; TEMP 98
[2024-11-17 13:15] VITALS: BP 128/74; PULSE 89; RESP 18; TEMP 97.6; O2SAT 98
[2024-11-17 20:24] VITALS: BP 129/78; PULSE 106; RESP 17; TEMP 97.4; O2SAT 99
[2024-11-18 08:39] VITALS: BP 132/91; PULSE 86; RESP 18; TEMP 98.1; O2SAT 98
[2024-11-18 17:07] VITALS: BP 130/90; PULSE 86; RESP 18; TEMP 98.4; O2SAT 99
[2024-11-18 20:30] VITALS: BP 142/95; PULSE 100; RESP 20; TEMP 97.6; O2SAT 100
[2024-11-19 10:31] VITALS: BP 143/93; PULSE 98; RESP 18; TEMP 97.8; O2SAT 100
[2024-11-19 17:35] VITALS: BP 132/79; PULSE 81; RESP 17; TEMP 97.6
[2024-11-19 18:35] VITALS: BP 116/69; PULSE 78; RESP 18; TEMP 98.1
[2024-11-19 21:23] VITALS: BP 122/84; PULSE 100; RESP 18; TEMP 97.8; O2SAT 100
[2024-11-20 08:00] VITALS: BP 102/76; PULSE 91; RESP 18; TEMP 98.1; O2SAT 95
[2024-11-20 21:35] VITALS: BP 143/97; PULSE 98; RESP 20; TEMP 97.6; O2SAT 99
[2024-11-21 10:00] VITALS: BP 136/70; PULSE 76; RESP 20; TEMP 98; O2SAT 96
[2024-11-21] MEDS ORDERED: METF-1211 PO (12:19)
[2024-11-21] MEDS ORDERED: HYDR25TA PO (12:19)
[2024-11-21] MEDS ORDERED: DOCU-412 PO (12:19)
[2024-11-21] MEDS ORDERED: RISP3TAB35 PO (12:19)
[2024-11-21] MEDS ORDERED: PROP60CA31 PO (12:19)
[2024-11-21] MEDS ORDERED: CLOZ100T11 PO (12:19)
[2024-11-21] MEDS ORDERED: FAMO20 PO (12:19)
[2024-11-21 23:09] VITALS: BP 141/107; PULSE 102; RESP 18; TEMP 97.8; O2SAT 100
[2024-11-22 08:00] VITALS: BP 138/78; PULSE 80; RESP 20; TEMP 98
[2024-11-22 20:28] VITALS: RESP 20
[2024-11-23 11:03] LABS: COVID AG,FIA SOURCE NASAL SWAB
[2024-11-23 11:31] LABS: SARS-COV2 (COVID) ANTIGEN,FIA Negative (Negative)
[2024-11-23 11:33] VITALS: BP 148/98; PULSE 98; RESP 17; TEMP 97; O2SAT 98
[2024-11-23] MEDS ORDERED: CLOZ100T61 PO ×2 (18:19)
[2024-11-23] MEDS ORDERED: DIVA-112 PO (18:20)
[2024-11-23] MEDS ORDERED: METO25XL PO (18:23)
[2024-11-23 20:39] VITALS: BP 143/99; PULSE 100; RESP 18; TEMP 97.2; O2SAT 97
[2024-11-24 08:15] VITALS: BP 150/107; PULSE 107; RESP 18; TEMP 97.3; O2SAT 96
[2024-11-24 08:25] LABS: BASOPHILS % (AUTO) 0.6 % (0.0-2.0); EOSINOPHILS % (AUTO) 1.5 % (1.0-6.0); HEMATOCRIT 35.8 % (36-46); HEMOGLOBIN 12.4 g/dL (12.0-16.0); LYMPHOCYTES # (AUTO) 4.4 K/uL (1.0-4.8); LYMPHOCYTES % (AUTO) 49.1 % (22.0-44.0); MEAN CORPUSCULAR HEMOGLOBIN 28.2 pg (26.0-34.0); MEAN CORPUSCULAR HGB CONC 34.6 G/dL (31.0-37.0); MEAN CORPUSCULAR VOLUME 82 fL (80-100); NEUTROPHILS # (AUTO) 3.4 K/uL (1.8-7.7); NEUTROPHILS % (AUTO) 37.8 % (40.0-70.0); PLATELET COUNT (AUTO) 453 K/uL (150-450); RED BLOOD CELL COUNT(AUTO) 4.39 MIL/uL (4.00-5.20); RED CELL DISTRIBUTION WIDTH 18.2 % (11.5-14.5)
== END 2024-11-24 09:00 | DRG 750 ==
LOC: B3A 22:16 → 3EC 11-11 00:32 → 3EI 11-14 16:10
PROVIDERS: ADMIT Psychiatry & Neurology Psychiatry; ATTEND Psychiatry & Neurology Psychiatry
PROC: GZHZZZZ Group Psychotherapy (ICD-10-PCS; principal; 2024-09-28)
PROC: GZ52ZZZ Individual Psychotherapy, Cognitive (ICD-10-PCS; 2024-09-28)
DX: F20.0 Paranoid schizophrenia (principal); E11.9 Type 2 diabetes mellitus without complications; E66.9 Obesity, unspecified; F41.9 Anxiety disorder, unspecified; G47.00 Insomnia, unspecified; K59.00 Constipation, unspecified; J45.909 Unspecified asthma, uncomplicated; Z20.822 Contact with and (suspected) exposure to COVID-19; I10 Essential (primary) hypertension; Z79.899 Other long term (current) drug therapy; Z68.42 Body mass index [BMI] 45.0-49.9, adult
CPT/HCPCS: 80053; 80061; 80164; 80307; 81001; 82962; 83036; 84439; 84443; 84702; 85025; 87081; J1200; J1630; J2060; J3535; Q0162